=== PATIENT | female | born 1945 ===

== ENCOUNTER 2025-02-17 11:16 | Observation (INO) ==
--- NOTE | 2025-02-17 11:25 | ED Physician Documentation ---
PD HPI ALTERED MENTAL STATUS Stated complaint Stated Complaint: ALOC Chief complaint Chief Complaint: Neuro History obtained from History obtained from: Patient and EMS (Medics report pt apartment was cluttered but neat, seems pt had been keeping care of herself. On their arrival, pt not verbal but did follow commands. ) History of Present Illness Timing - onset: Unknown Timing - details: Other (patient seen standing in her doorway, not moving or doing any purposeful activity. Landlord stopped to check on her and she was not answering questions, just staring blankly. No noted focal weakness. EMS called. They say pt walked down outdoor stairway. But did not answer any questions. ) Contributing factors: Other (unknown circumstances prior to pt having these symptoms. Medic states pt was alone in apartment. ); No Diabetic or Known psych illness Basline status: Ambulatory, Independent (lives alone apparently, so presume is usually functional. ) and Home Treatment DIRECTOR GEOTHERMAL OPERATIONS: Accucheck Similar symptoms before: Has not had sx before Meds/Allgy Allergies Allergies Allergy/AdvReac Type Severity Reaction Status Date / Time Unable to Assess Allergy Verified 02/17/25 11:50 PFSH Active Problems All Active Problems (Updated 02/17/25 @ 16:24 by HARPREET Flores) Lactic acidosis (Acute) Self-care deficit (Acute) Dehydration (Acute) Altered mental status (Acute) Social History Social History Smoking Status: Unknown if ever smoked Exam Exam Vital Signs: Vital Signs x48h Pulse BP Pulse Ox 02/17/25 14:00 85 181/74 H 96 02/17/25 13:19 86 181/74 H 96 02/17/25 13:03 102 H 188/101 H 96 Constitutional normal general appearance, no apparent distress and average body habitus HENMT normocephalic and head/scalp atraumatic Eyes PERRL Neck/C-Spine supple and no meningeal signs Lymph no lymphadenopathy noted Respiratory normal respiratory effort, clear to auscultation bilaterally and no use of accessory muscles Cardiovascular normal heart rate noted, regular rhythm noted and no edema Gastrointestinal abdomen soft to palpation and nontender to palpation Back/Pelvis no thoracic spine tenderness and no lumbar spine tenderness Extremities no tenderness and full ROM Neurology no focal motor deficit noted, no sensory deficits noted and speech abnormality noted (expressive aphasia) (she is just not making attempts to talk. Looking somewhat blankly when I talk to her. Slowly follows commands to squeeze my hands only after I hold them and give a little squeeze first. ) Psychiatry mental status abnormal other (just blank staring toward me when I talk to her. Flat affect. No apparent pain. Abd tender on exam. ) Skin skin color normal Results Vitals Vitals: Vital Signs - 24 hr 02/17/25 11:38 02/17/25 12:20 02/17/25 13:03 Temperature 37.4 C Temperature Source Rectal Pulse Rate 108 H 96 102 H Respiratory Rate 22 22 Blood Pressure 151/103 H 188/101 H 188/101 H O2 Saturation 98 98 96 O2 Source Room air Room air Room air Pain Intensity 0 02/17/25 13:19 02/17/25 14:00 Temperature Temperature Source Pulse Rate 86 85 Respiratory Rate Blood Pressure 181/74 H 181/74 H O2 Saturation 96 96 O2 Source Room air Room air Pain Intensity Oxygen O2 Source Room air Labs Labs: Laboratory Tests 02/17/25 11:47 WBC 8.9 RBC 5.77 H Hgb 17.0 H Hct 51.3 H MCV 88.9 MCH 29.5 MCHC 33.1 RDW 12.5 Plt Count 330 MPV 10.9 H Neut # (Auto) 7.6 H Lymph # (Auto) 1.0 L [place] # (Auto) 0.2 Eos # (Auto) 0.0 Baso # (Auto) 0.0 Absolute Nucleated RBC 0.00 Nucleated RBC % 0.0 Sodium 141 Potassium 4.2 Chloride 99 L Carbon Dioxide 21 Anion Gap 21.0 H BUN 39 H Creatinine 1.1 Estimated GFR (MDRD) 48 L Glucose 170 H Lactic Acid 3.3 H* Calcium 10.3 Magnesium 2.5 H Total Bilirubin 0.9 AST 15 ALT 12 Alkaline Phosphatase 74 Total Protein 7.6 Albumin 4.4 Globulin 3.2 Albumin/Globulin Ratio 1.4 Lipase 32 TSH 1.80 Rads (name of study) AP CT: Relevant Findings:: Final report received Interpretation: EXAM: [id number] CT/ABPEW ([id number]) PROCEDURE: CT Abdomen/Pelvis W INDICATIONS: lower abd tender CONTRAST: Omni 300 100mL TECHNIQUE: After the administration of intravenous contrast, a CT scan of the abdomen and pelvis was performed. Images were recorded and evaluated at appropriate window settings. Reformats: coronal and sagittal. For radiation dose reduction, the following was used: automated exposure control, adjustment of mA and/or kV according to patient size. COMPARISON: None. FINDINGS: Image quality: Diagnostic. Lower chest: Small hiatal hernia. Normal heart size. Extreme lung bases are clear.. Liver: No solid mass. Gallbladder: Distended gallbladder with mild wall prominence. There is no inflammatory change in the adjacent fat. Biliary tree: No intrahepatic or extrahepatic dilation, accounting for age. Spleen: No splenomegaly. Pancreas: No pancreatic ductal dilation. Adrenals: No adrenal nodule. Kidneys and ureters: No hydronephrosis. No renal cystic lesion which requires follow up. No solid mass. Stomach, bowel and peritoneum: No gastric or small bowel dilation. No abnormal wall thickening. No pathologic free fluid. Moderately large fecal load. Lymph nodes: No central or retroperitoneal adenopathy. Vessels: No infrarenal aortic aneurysm. Patent portal vein. PELVIS Reproductive organs: Uterine endometrium is thickened, measuring 9 mm. Calcified degenerated uterine fibroids. Bladder: No abnormal wall thickening. Pelvic lymph nodes: No pelvic adenopathy by size criteria. Bones: No aggressive osseous abnormality. Old L5 compression. Other: No significant ventral or inguinal hernia. IMPRESSION: 1. Distended gallbladder with mild wall prominence without subjacent inflammatory change. 2. Thickened endometrium in a postmenopausal female. 3. Moderately large fecal load. Comments: If clinically suspect acute gallbladder pathology, recommend right upper quadrant ultrasound. Additionally, recommend nonemergent pelvic ultrasound to evaluate endometrial thickening in a postmenopausal female. Findings may potentially represent early endometrial carcinoma. Reviewed by: Haile Jean-Baptiste MD on 02/17/2025 1:[address]: Relevant Findings:: Final report received Interpretation: EXAM: [id number] CT/HEADWO ([id number]) PROCEDURE: CT Head WO INDICATIONS: AMS TECHNIQUE: CT of the head was performed, without intravenous contrast. Reformats: Coronal and sagittal. For radiation dose reduction, the following was used: automated exposure control, adjustment of mA and/or kV according to patient size. COMPARISON: None. FINDINGS: Image quality: Diagnostic. CSF spaces: Basal cisterns are patent. No extra-axial fluid collections. Ventricles are normal in size and shape. Brain: No midline shift. No intracranial mass effect or hemorrhage. Wiley- white matter interface is normal. Age appropriate volume loss and periventricular white matter hypoattenuation, likely chronic ischemic change. Skull and face: Calvarium and visualized facial bones are intact, without s uspicious lesions. Sinuses: Visualized sinuses and mastoids are clear. IMPRESSION: No acute intracranial pathology. Reviewed by: Haile Jean-Baptiste MD on 02/17/2025 1:30 PM [facility] chest xray: Relevant Findings:: Final report received Interpretation: EXAM: [id number] XR/CXR1VW ([id number]) PROCEDURE: XR Chest 1V INDICATIONS: AMS TECHNIQUE: One view of the chest was acquired. COMPARISON: None. FINDINGS: Surgical changes and devices: None. Lungs and pleura: No pleural effusions or pneumothorax. No consolidation. Mediastinum: Mediastinal contours appear normal. Heart size is normal. Bones and chest wall: No suspicious bony lesions. Overlying soft tissues appear unremarkable. IMPRESSION: No acute cardiopulmonary process. Reviewed by: Haile Jean-Baptiste MD on 02/17/2025 3:07 PM [facility] PD Medical Decision Making ED course Complexity details: reviewed results, re-evaluated patient (having some simple answers to qeustions at times but still not conversant or interacting appropriately. ), considered differential (nonverbal without focal deficit. Checking basic labs, head CT, signs of infection. Has some lower abd tenderness evidenced by her wincing on palpation. CT abd/pelvis done. ), d/w patient and d/w sap business objects consultant (talked with Dr. Pabon, hospitalist, as I do not have clear cause of her altered mmental status, I asked for placing in hospital for further testing. ) Reviewed Lab Results: CT abd with some GB distension, but not clear cholecystitis. She is not tender in upper abd. Moderately large fecal load. WBC normal. Sodium and lytes normal range. Creatinine 1.1. Lactate is elevated at 3.3. COnsider underhydration with less perfusion vs infectious cause. CXR without infiltrates. UA ubsequently done and without infection. Lower abd tender without peritoneal findings. CT did not identify obvious process as infection. Head CT without acute findings. Consider MRI. Discharge Plan Discharge Patient Disposition: ED Place in Observation Condition: Stable Clinical Impression: Altered mental status Interventions: ED Admission Assessment Last Done: 02/17/25 15:35 Vitals documented within 30 minutes of discharge?: Yes
[2025-02-17] MEDS: SODIUM CHLORIDE 0.9% 1,000 ML IV STA ×2 (11:51→12:55)
[2025-02-17 11:55] LABS: HCT - HEMATOCRIT 51.3 % (37.0-47.0); HGB - HEMOGLOBIN 17.0 g/dL (12.0-16.0); MEAN PLATELET VOLUME 10.9 fL (7.9-10.8); NRBC ABSOLUTE COUNT (AUTO) 0.00 x10^3/uL; NUCLEATED RED BLOOD CELLS AUTO 0.0 /100WBC; PLT - PLATELET COUNT 330 10^3/uL (130-450); RED CELL DISTRIBUTION WIDTH 12.5 % (12.0-15.0)
[2025-02-17 12:17] LABS: ALT ALANINE AMINOTRANSFERASE 12.0 IU/L (10-60); AST ASPARTATE AMINOTRANSFERASE 15.0 IU/L (10-42); BUN - BLOOD UREA NITROGEN 39.0 mg/dL (6-20); CARBON DIOXIDE - CO2 21.0 mmol/L (21-32); CREATININE 1.1 mg/dL (0.6-1.3); GFR - MDRD 48.0 (>89)
--- NOTE | 2025-02-17 13:33 | CT Report ---
PROCEDURE: CT Head WO INDICATIONS: AMS TECHNIQUE: CT of the head was performed, without intravenous contrast. Reformats: Coronal and sagittal. For radiation dose reduction, the following was used: automated exposure control, adjustment of mA and/or kV according to patient size. COMPARISON: None. FINDINGS: Image quality: Diagnostic. CSF spaces: Basal cisterns are patent. No extra-axial fluid collections. Ventricles are normal in size and shape. Brain: No midline shift. No intracranial mass effect or hemorrhage. Wiley- white matter interface is normal. Age appropriate volume loss and periventricular white matter hypoattenuation, likely chronic ischemic change. Skull and face: Calvarium and visualized facial bones are intact, without suspicious lesions. Sinuses: Visualized sinuses and mastoids are clear. IMPRESSION: No acute intracranial pathology. Reviewed by: Haile Jean-Baptiste MD on 02/17/2025 1:[address] [facility] Approved by: Haile Jean-Baptiste MD on 02/17/2025 1:[address] [facility] Station ID: [id number]
--- NOTE | 2025-02-17 13:45 | CT Report ---
PROCEDURE: CT Abdomen/Pelvis W INDICATIONS: lower abd tender CONTRAST: Omni 300 100mL TECHNIQUE: After the administration of intravenous contrast, a CT scan of the abdomen and pelvis was performed. Images were recorded and evaluated at appropriate window settings. Reformats: coronal and sagittal. For radiation dose reduction, the following was used: automated exposure control, adjustment of mA and/or kV according to patient size. COMPARISON: None. FINDINGS: Image quality: Diagnostic. Lower chest: Small hiatal hernia. Normal heart size. Extreme lung bases are clear.. Liver: No solid mass. Gallbladder: Distended gallbladder with mild wall prominence. There is no inflammatory change in the adjacent fat. Biliary tree: No intrahepatic or extrahepatic dilation, accounting for age. Spleen: No splenomegaly. Pancreas: No pancreatic ductal dilation. Adrenals: No adrenal nodule. Kidneys and ureters: No hydronephrosis. No renal cystic lesion which requires follow up. No solid mass. Stomach, bowel and peritoneum: No gastric or small bowel dilation. No abnormal wall thickening. No pathologic free fluid. Moderately large fecal load. Lymph nodes: No central or retroperitoneal adenopathy. Vessels: No infrarenal aortic aneurysm. Patent portal vein. PELVIS Reproductive organs: Uterine endometrium is thickened, measuring 9 mm. Calcified degenerated uterine fibroids. Bladder: No abnormal wall thickening. Pelvic lymph nodes: No pelvic adenopathy by size criteria. Bones: No aggressive osseous abnormality. Old L5 compression. Other: No significant ventral or inguinal hernia. IMPRESSION: 1. Distended gallbladder with mild wall prominence without subjacent inflammatory change. 2. Thickened endometrium in a postmenopausal female. 3. Moderately large fecal load. Comments: If clinically suspect acute gallbladder pathology, recommend right upper quadrant ultrasound. Additionally, recommend nonemergent pelvic ultrasound to evaluate endometrial thickening in a postmenopausal female. Findings may potentially represent early endometrial carcinoma. Reviewed by: Haile Jean-Baptiste MD on 02/17/2025 1:42 PM PST Approved by: Haile Jean-Baptiste MD on 02/17/2025 1:42 PM PST Station ID: [id number]
--- NOTE | 2025-02-17 14:55 | HISTORY & PHYSICAL EXAMINATION ---
Chief Complaint Chief Complaint Chief Complaint: AMS History of Present Illness Admitted From Admitted From:: home History Obtained From Records Reviewed: none available History obtained from: Patient History of Present Illness HPI Comment/Other: 79-year-old female with unknown past medical history who presents to the emergency department with altered level of consciousness. According to EMS she was found sitting by her front door. She had not been seen for about 2 days. Initial report say that she is nonverbal but follows commands. When I came in to her room in the emergency department I asked her her name. She did eye me suspiciously and was quiet for a few moments and then told me that her name was Cecelia Camejo. She then starts to speak to me about being thirsty. And then launches into confused speech where she describes that she has water in her toilet. I asked her if she was drinking the water in the toilet and she said no. And then tells me about washing her hair with warm water and cold water. She also tells me that someone was knocking on her door but she did not know if they were knocking on the front door or the back door. And then they brought her here. She is oriented to month and year but not day. She knows that we are in the hospital. When I ask her who her primary care doctor is she looks at me as if pondering my question but then never answers. When I ask her who she calls if she has a problem she says that she figures it out herself. When I ask her who I should call if she is sick in the hospital and unable to tell me anything she simply does not answer my question. Otherwise I cannot elicit any complaints from her. Aside from admitting that she is thirsty.She is unable to tell me anything about her day-to-day life, or how she manages to meet her own needs. CODE STATUS unknown, full code by default. is listed in chart. Per brief Internet search he has been for almost 20 years. Patient possibly has a son also per 's obituary. His name is Omer. Meds/Allgy Allergies Allergies Allergy/AdvReac Type Severity Reaction Status Date / Time Unable to Assess Allergy Verified 02/17/25 11:50 PFSH Active Problems All Active Problems (Updated 02/17/25 @ 16:24 by HARPREET Flores) Lactic acidosis (Acute) Self-care deficit (Acute) Dehydration (Acute) Altered mental status (Acute) POLST Patient has POLST: No POLST on file?: No Review of Systems Status of ROS: unobtainable due to mental status Prior Level of Functionality: Unknown Exam Exam Vital Signs: Vital Signs x48h Temp Pulse Pulse Resp BP BP Pulse Ox 02/17/25 15:39 37.0 C 102 H 18 169/86 H 98 02/17/25 15:35 88 173/86 H 95 02/17/25 14:00 85 181/74 H 96 02/17/25 13:19 86 181/74 H 96 02/17/25 13:03 102 H 188/101 H 96 02/17/25 12:20 96 22 188/101 H 98 02/17/25 11:38 37.4 C 108 H 22 151/103 H 98 Constitutional Disheveled and poorly groomed HENMT normocephalic, head/scalp atraumatic and external ears normal For dental hygiene with poor dentition Eyes PERRL, EOMs intact bilaterally, conjunctivae normal, alignment normal and visual acuity normal Neck/C-Spine visual inspection normal, trachea midline and cervical spine nontender Lymph no lymphadenopathy noted and no lymphedema noted Chest inspection of chest normal Respiratory breath sounds equal bilaterally, normal respiratory effort, clear to auscultation bilaterally and no use of accessory muscles Cardiovascular no murmur, no additional abnormal heart sounds and no edema Tachycardic to the low 100s. Gastrointestinal abdomen normal to inspection and abdomen soft to palpation Mild suprapubic tenderness consistent with full bladder that I can see on the CT Genitourinary bladder abnormal to palpation Extremities normal to inspection, normal to palpation, no tenderness and no deformity Neurology no movement abnormality noted, no focal motor deficit noted, no sensory deficits noted and GCS 15 (Confused eyes open spontaneously, confused speech, follows commands equals ) Psychiatry cooperative disoriented, no insight, oriented to person, place and time, but not situation. Skin skin color normal, no rash and no lesions hair slightly matted, has not been washed in some time. Conclusion/Plan Problem List (1) Altered mental status: Plan: presents to the emergency department with altered mental status after welfare check. She is intermittently verbal. Seems very suspicious of her caregivers. We have asked her multiple questions and then after an interval of time she answers some of them. She expresses some dismay that I asked about her son Omer. But she does not tell me why she is displeased with this question. She then says you asked me if I feel safe at home, of course I feel safe at home. I have a jones to the door. And then she tells us that the card are changing. When I ask her how the card are changing she says they are green now. She does not tell me who her primary care doctor is or if she takes any medications. She also will not answer my question when I ask her if she has ever had any surgery. This patient clearly has altered mental status. Is unclear if this is acute or chronic. I will place this patient on telemetry overnight to assess for any cardiac arrhythmias. I will attempt to get an MRI of her brain although I do not know how we will do the screening form (we did find her son to complete). Her laboratory findings look as if she is dehydrated. This is also consistent with findings on her physical exam. I will recheck a CBC and a BMP in the morning. UA and urine drug screen is pending. EKG shows sinus rhythm. she has some mild intermittent tachycardia. Discussed with Dr. Palomino in the ED and decision was made to admit this patient to the hospital overnight for workup of her altered mental status. (2) Dehydration: Plan: Patient got 2 L of IV fluids in the emergency department. I am allowing her to eat and drink at will. I will give her an additional liter at 100 cc an hour over the next 10 hours. I think this is related to her self care deficit. her son does relate some problems with the safety of the water at her mobile home park, and I wonder if she is not drinking at home. She does not appear to have the stamina to bring in her own bottled water for drinking. (3) Self-care deficit: Plan: She has dry mucous membranes. It looks like it has been quite sometime since she has brushed her teeth. Her hemoglobin is 17.0. She has an elevated lactate and a slightly high magnesium. She appears poorly groomed. Baseline status is independent. Does not drive. I was able to identify an obituary for her . On this it lists his son by the name of Omer, same last name. I have requested social work consult to further investigate. Dr Pabon was able to find her son and speak with him. ([phone]) It seems that she is having some progressive decline. She has been rather odd for years, confabulates. But, she is able to handle her own finances, meets her own care needs. Uses public transport to get groceries. Does have limited contact with others. does not have good friends or regular social interactions. She does not have a phone. Her DIL works in [place] and the patient will occasionally drop by [employer]'s place of business with gifts, etc. Son only speaks to her or sees her every few weeks, and she tends to get annoyed with too much human contact. Son Omer is her NOK. She believed that her was alive for years after he was , and to this day, will occasionally think this. May have some underlying undiagnosed mental illness and may also be suffering from dementia. Does not have a PCP or seek medical care. Spoke with manufacturing operations manager at [employer]. This person noted that Cecelia Bustos was very different than normal today. normally she is grouchy, accusatory and paranoid. Today, she was almost catatonic. As she intermittently improves here, I am seeing that she is starting to become paranoid and suspicious of her care team. (4) Lactic acidosis: Plan: Likely related to dehydration. I do not have a urinalysis. She does not have a leukocytosis. Resolved with hydration, i will be following up on UA. Plan I have spent 85 minutes in the care of this patient today. This includes time [id number], review and ordering of diagnostic imaging and laboratory studies and consultation with other providers, as well as gathering history from independent historians. Monitoring the patient's signs symptoms, evaluation of medication effectiveness and patient's response to treatment. Lab Results Lab results reviewed: Yes 02/17/25 11:47 02/17/25 11:47 Diagnostic Imaging Results Diagnostic Imaging Results: positive Final report reviewed and Read independently EKG Results EKG Interpreted Independently: Yes EKG Comparison: No prior EKG EKG Findings: Sinus rhythm with some artifact. Core Measures Anticipated LOS I expect patient to be DC'd or transferred within 96 hours.: Yes DVT/VTE - Prophylaxis VTE/DVT Device ordered at admit?: Yes VTE/DVT Prophylaxis med ordered at admit?: Yes
--- NOTE | 2025-02-17 15:10 | XRAY Report ---
PROCEDURE: XR Chest 1V INDICATIONS: AMS TECHNIQUE: One view of the chest was acquired. COMPARISON: None. FINDINGS: Surgical changes and devices: None. Lungs and pleura: No pleural effusions or pneumothorax. No consolidation. Mediastinum: Mediastinal contours appear normal. Heart size is normal. Bones and chest wall: No suspicious bony lesions. Overlying soft tissues appear unremarkable. IMPRESSION: No acute cardiopulmonary process. Reviewed by: Haile Jean-Baptiste MD on 02/17/2025 3:07 PM [facility] Approved by: Haile Jean-Baptiste MD on 02/17/2025 3:07 PM PST Station ID: [id number]
[2025-02-17] MEDS ORDERED: ACETAMINOPHEN 325 MG TABLET PO PRN (15:39)
[2025-02-17] MEDS ORDERED: SODIUM CHLORIDE FLUSH 0.9% 10 ML SYRINGE IVP PRN (15:39)
[2025-02-17] MEDS ORDERED: ONDANSETRON ODT 4 MG TABLET TL PRN (15:39)
[2025-02-17] MEDS: DEXTROSE 5%-0.9% NACL 1,000 ML IV SCH (16:45)
[2025-02-17 18:24] LABS: GLUCOSE, URINE (UA) Negative (NEGATIVE); KETONES,URINE (UA) 40 mg/dL (NEGATIVE); OCCULT BLOOD,URINE Trace-intact (NEGATIVE)
[2025-02-17] MEDS: SODIUM CHLORIDE FLUSH 0.9% 10 ML SYRINGE IVP SCH (18:41)
[2025-02-17 18:45] LABS: SQUAMOUS EPITHELIAL CELL,UR FEW Squamous (<= Few)
[2025-02-17 18:46] LABS: AMPHETAMINE SCREEN,URINE NEGATIVE (NEGATIVE); BARBITURATE SCREEN,UR NEGATIVE (NEGATIVE); BENZODIAZEPINES SCREEN, URINE NEGATIVE (NEGATIVE); BUPRENORPHINE SCREEN, URINE NEGATIVE (NEGATIVE); COCAINE SCREEN URINE NEGATIVE (NEGATIVE); METHADONE SCREEN, URINE NEGATIVE (NEGATIVE); METHAMPHETAMINES SCREEN, URINE NEGATIVE (NEGATIVE); OPIATE SCREEN, URINE NEGATIVE (NEGATIVE); THC CANNABINOID SCREEN, URINE NEGATIVE (NEGATIVE)
--- NOTE | 2025-02-17 18:46 | MRI Report ---
PROCEDURE: MRI Brain WO INDICATIONS: AMS TECHNIQUE: Multisequence MRI of the brain was performed without intravenous contrast. COMPARISON: Same day CT head FINDINGS: Image quality: Diagnostic. CSF Spaces: Basal cisterns are patent. No extra-axial fluid collections. Ventricles are normal in size and shape. Brain: No intracranial mass effect or hemorrhage. Wiley/white matter interface is normal. Minimal chronic microvascular ischemic change. Brainstem appears normal. Diffusion-weighted images demonstrate no acute ischemic insult. No chronic ischemic insults. Normal intravascular flow voids are present. Skull and face: Calvarium has normal marrow signal. Orbits appear normal. Sinuses: Sinuses and mastoids are clear. IMPRESSION: No acute or subacute infarct. No acute intracranial abnormalities. Reviewed by: Jose Jaquez MD on 02/17/2025 6:43 PM PST Approved by: Jose Jaquez MD on 02/17/2025 6:43 PM [facility] Station ID: [id number]
[2025-02-18 05:23] LABS: HCT - HEMATOCRIT 36.2 % (37.0-47.0); HGB - HEMOGLOBIN 11.8 g/dL (12.0-16.0); MEAN PLATELET VOLUME 10.9 fL (7.9-10.8); NRBC ABSOLUTE COUNT (AUTO) 0.00 x10^3/uL; NUCLEATED RED BLOOD CELLS AUTO 0.0 /100WBC; PLT - PLATELET COUNT 213 10^3/uL (130-450); RED CELL DISTRIBUTION WIDTH 12.5 % (12.0-15.0)
[2025-02-18 05:41] LABS: BUN - BLOOD UREA NITROGEN 21.0 mg/dL (6-20); CARBON DIOXIDE - CO2 25.0 mmol/L (21-32); CREATININE 0.6 mg/dL (0.6-1.3); GFR - MDRD 97.0 (>89)
[2025-02-18] MEDS: DOCUSATE SODIUM 250 MG CAPSULE PO SCH (08:40)
[2025-02-18] MEDS: ENOXAPARIN 40 MG/0.4 ML SYRINGE SUBQ SCH (08:42)
--- NOTE | 2025-02-18 12:24 | PROVIDER PROGRESS NOTE ---
Subjective Prog Note Date Prog Note Date: 02/18/25 Subjective Subjective: She is awake and alert, but does not always answer my questions. She is oriented x3. Social work has been able to meet with her family. Current Medications Current Medications Current Medications: Current Medications Generic Name Dose Route Start Last Admin Trade Name Freq PRN Reason Stop Dose Admin Acetaminophen 650 mg 02/17/25 15:39 Acetaminophen 325 Mg Tablet PO Q4HR PRN Pain 1 to 4, or Fever Docusate Sodium 250 - 500 mg 02/18/25 09:00 02/18/25 10:01 Docusate Sodium 250 Mg Capsule PO Not Given DAILY [facility] Enoxaparin Sodium 40 mg 02/18/25 09:00 02/18/25 08:42 Enoxaparin 40 Mg/0.4 Ml Syringe SUBQ Not Given DAILY [facility] Ondansetron HCl 4 mg 02/17/25 15:39 Ondansetron Odt 4 Mg Tablet TL Q6HR PRN Nausea / Vomiting Polyethylene Glycol 17 gm 02/18/25 09:00 02/18/25 10:02 Polyethylene Glycol 3350 17 Gm Packet PO Not Given DAILY [facility] Sodium Chloride 10 ml 02/17/25 15:39 Sodium Chloride Flush 0.9% 10 Ml Syringe IVP PRN PRN NEEDED PER PROVIDER ORDERS Sodium Chloride 10 ml 02/17/25 17:00 02/18/25 08:40 Sodium Chloride Flush 0.9% 10 Ml Syringe IVP 10 ml 0100,0900,1700 [facility] Administration Objective Vital Signs/Intake & Output Reviewed Vital Signs: Yes Vital Signs: Vital Signs x48h Temp Pulse Resp BP Pulse Ox 02/18/25 11:50 36.4 C L 85 16 146/73 H 95 02/18/25 07:58 36.7 C 86 16 130/72 96 02/18/25 05:00 37.1 C 80 16 144/68 H 95 Intake & Output: Intake & Output 02/15/25 02/16/25 02/17/25 02/18/25 23:59 23:59 23:59 23:59 Intake Total 3200 / 3200 1150 / 1150 Output Total 1200 / 1200 300 / 300 Balance 1999 / 1999 850 / 850 Weight (kg) 57 kg Objective General Appearance: positive No acute distress and Alert Eyes Bilateral: positive PERRL and Conjunctivae nml ENT: positive ENT inspection nml Neck: positive Nml inspection Respiratory: positive No respiratory distress and Breath sounds nml Cardiovascular: positive Regular rate & rhythm Abdomen: positive No distention Skin: positive Color nml Extremities: positive Non-tender and No pedal edema Lab Results 02/18/25 04:47 02/18/25 04:47 Other Labs: Lab Results x24hrs 02/18/25 02/17/25 02/17/25 Range/Units 04:47 18:15 15:52 WBC 7.7 (4.8-10.8) x10^3/uL RBC 4.03 L (4.20-5.40) 10^6/uL Hgb 11.8 L (12.0-16.0) g/dL Hct 36.2 L (37.0-47.0) % MCV 89.8 (81.0-99.0) fL MCH 29.3 (27.0-31.0) pg MCHC 32.6 (32.0-36.0) g/dL RDW 12.5 (12.0-15.0) % Plt Count 213 (130-450) 10^3/uL MPV 10.9 H (7.9-10.8) fL Neut # (Auto) 5.7 (1.5-6.6) 10^3/uL Lymph # (Auto) 1.4 L (1.5-3.5) 10^3/uL Clay # (Auto) 0.6 (0.0-1.0) 10^3/uL Eos # (Auto) 0.0 (0.0-0.7) 10^3/uL Baso # (Auto) 0.0 (0.0-0.1) 10^3/uL Absolute Nucleated RBC 0.00 x10^3/uL Nucleated RBC % 0.0 /100WBC Sodium 138 (135-145) mmol/L Potassium 3.1 L (3.5-4.5) mmol/L Chloride 109 (101-111) mmol/L Carbon Dioxide 25 (21-32) mmol/L Anion Gap 4.0 L (6-13) BUN 21 H (6-20) mg/dL Creatinine 0.6 (0.6-1.3) mg/dL Estimated GFR (MDRD) 97 (>89) Glucose 127 H (74-104) mg/dL Lactic Acid 1.2 (0.5-2.2) mmol/L Calcium 8.6 (8.5-10.3) mg/dL TSH (0.34-5.60) uIU/mL Urine Color Dark yellow Urine Clarity Clear (CLEAR) Urine pH 5.5 (5.0-7.5) PH Ur Specific [place] 1.015 (1.002-1.030) Urine Protein 30 H (NEGATIVE) mg/dL Urine Glucose (UA) Negative (NEGATIVE) mg/dL Urine Ketones 40 H (NEGATIVE) mg/dL Urine Occult Blood Trace-intact (NEGATIVE) Urine Nitrite Negative (NEGATIVE) Urine Bilirubin Moderate (NEGATIVE) Urine Urobilinogen 1 (NORMAL) (NORMAL) E.U./dL Ur Leukocyte Esterase Negative (NEGATIVE) Urine RBC 0-5 (0-5) /HPF Urine WBC 0-3 (0-5) /HPF Ur Squamous Epith Cells FEW Squamous (<= Few) Urine Bacteria Rare (None Seen) /HPF Urine Mucus Moderate Strands Urine Culture Comments NOT INDICATED Urine Opiates Screen NEGATIVE (NEGATIVE) Ur Buprenorphine Scrn NEGATIVE (NEGATIVE) Ur Oxycodone Screen NEGATIVE (NEGATIVE) Urine Methadone Screen NEGATIVE (NEGATIVE) Urine Fentanyl Screen Negative (NEGATIVE) Ur Barbiturates Screen NEGATIVE (NEGATIVE) Ur Tricyclics Screen NEGATIVE (NEGATIVE) Ur Phencyclidine Scrn NEGATIVE (NEGATIVE) Ur Amphetamine Screen NEGATIVE (NEGATIVE) U Methamphetamines Scrn NEGATIVE (NEGATIVE) U Benzodiazepines Scrn NEGATIVE (NEGATIVE) Urine Cocaine Screen NEGATIVE (NEGATIVE) U Cannabinoids Screen NEGATIVE (NEGATIVE) Ur Drug Screen Comment CUTOFF CONC BELOW: 02/17/25 Range/Units 11:47 WBC (4.8-10.8) x10^3/uL RBC (4.20-5.40) 10^6/uL Hgb (12.0-16.0) g/dL Hct (37.0-47.0) % MCV (81.0-99.0) fL MCH (27.0-31.0) pg MCHC (32.0-36.0) g/dL RDW (12.0-15.0) % Plt Count (130-450) 10^3/uL MPV (7.9-10.8) fL Neut # (Auto) (1.5-6.6) 10^3/uL Lymph # (Auto) (1.5-3.5) 10^3/uL Clay # (Auto) (0.0-1.0) 10^3/uL Eos # (Auto) (0.0-0.7) 10^3/uL Baso # (Auto) (0.0-0.1) 10^3/uL Absolute Nucleated RBC x10^3/uL Nucleated RBC % /100WBC Sodium (135-145) mmol/L Potassium (3.5-4.5) mmol/L Chloride (101-111) mmol/L Carbon Dioxide (21-32) mmol/L Anion Gap (6-13) BUN (6-20) mg/dL Creatinine (0.6-1.3) mg/dL Estimated GFR (MDRD) (>89) Glucose (74-104) mg/dL Lactic Acid (0.5-2.2) mmol/L Calcium (8.5-10.3) mg/dL TSH 1.80 (0.34-5.60) uIU/mL Urine Color Urine Clarity (CLEAR) Urine pH (5.0-7.5) PH Ur Specific [place] (1.002-1.030) Urine Protein (NEGATIVE) mg/dL Urine Glucose (UA) (NEGATIVE) mg/dL Urine Ketones (NEGATIVE) mg/dL Urine Occult Blood (NEGATIVE) Urine Nitrite (NEGATIVE) Urine Bilirubin (NEGATIVE) Urine Urobilinogen (NORMAL) E.U./dL Ur Leukocyte Esterase (NEGATIVE) Urine RBC (0-5) /HPF Urine WBC (0-5) /HPF Ur Squamous Epith Cells (<= Few) Urine Bacteria (None Seen) /HPF Urine Mucus Urine Culture Comments Urine Opiates Screen (NEGATIVE) Ur Buprenorphine Scrn (NEGATIVE) Ur Oxycodone Screen (NEGATIVE) Urine Methadone Screen (NEGATIVE) Urine Fentanyl Screen (NEGATIVE) Ur Barbiturates Screen (NEGATIVE) Ur Tricyclics Screen (NEGATIVE) Ur Phencyclidine Scrn (NEGATIVE) Ur Amphetamine Screen (NEGATIVE) U Methamphetamines Scrn (NEGATIVE) U Benzodiazepines Scrn (NEGATIVE) Urine Cocaine Screen (NEGATIVE) U Cannabinoids Screen (NEGATIVE) Ur Drug Screen Comment Assessment/Plan Problem List (1) Altered mental status: Impression: presents to the emergency department with altered mental status after welfare check. Her MRI is negative. Her labs have normalized as I would expect in a person that did not eat and drink and then was given water and nutrition. I met with family last evening, and briefly greeted them at the bedside today. Family had a long meeting with social work today. What I am understanding about Jackie is that she has had mental health issues, that have gone untreated for most of her life. There are things about her past that her son has some minor clues about but that he really does not have the full story. She probably had significant traumatic events early in her life but no one seems to know more than that. She has always been rather odd and her son relates to social work what sounds like episodes of psychosis intermittently throughout her adult life. She has never been trustful of services that might help her. Her son is unaware of where her income comes from. She has never applied for health insurance. It is quite possible that she does not have Medicare. After getting out of the [employer] she never worked, but her did have a full [employer] career which hopefully will entitle her to some benefits. Her daily life recently consists of riding the bus into [place]. She likes to go into the coffee shops and get coffee although she has been told that she may not return to several of them due to behavioral outbursts and disturbances. She also periodically stops into her daughter in law's workplace at [employer]. As far as her son and [id number] knows she pays all of her bills. She does not have a refrigerator in her home and she has not allowed them to remove the nonworking refrigerator for years. The only food item that they found in her home was a box of Cheerios. Her home reportedly is very cluttered. her DIL and son report that the toilet had not been flushed in quite some time. There were buckets of water scattered about. There were rodent feces seen. It is clear that this patient has a self-care deficit that is acute in nature but probably smoldering for quite some time. She shows clear evidence that she is not able to care for herself. Will request PT evaluation in the a.m. to make sure she is able to ambulate household distances. (2) Dehydration: Impression: Resolved. Mild hypokalemia on labs this morning. Will replete. I will also check mag and Phos in the morning for refeeding syndrome. Her hemoglobin dropped from 17.0-11.8. I believe that this is a function of fluid status. (3) Self-care deficit: Impression: I believe this is an acute on chronic self-care deficit. This patient appears unwashed. She came in dehydrated and appears to have some mild degree of malnourishment. Descriptions of her home involve rodent feces and states of severe uncleanliness. The toilet has not been flushed in some time. I am asking for telepsych evaluation this afternoon. 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 She has no mental health diagnosis, because she has gone undoctored. she is very suspicious of others. Those that know her in the community describe her as grouchy, accusatory and paranoid. I would like a psychiatric opinion. (4) Lactic acidosis: Impression: Resolved. Likely due to dehydration. This patient's diagnosis and treatment plan was discussed this AM with attending physician as a part of multi disciplinary rounding meeting. I have spent 53 minutes in the care of this patient today. This includes time [id number], review and ordering of diagnostic imaging and laboratory studies and consultation with other providers. Monitoring the patient's signs symptoms, evaluation of medication effectiveness and patient's response to treatment.
[2025-02-18] MEDS: POTASSIUM CHLORIDE 20 MEQ TABLET PO ONE (16:48)
--- NOTE | 2025-02-18 19:42 | TELEPSYCH PHYS NOTE ---
[facility] Telepsych Consult Consult Date: 02/18/25 Name of Referring Provider:: inpatient medical provider Reason for Consult: psychiatric consultation Suicide Risk Sreening (ASQ Tool) In the past few weeks, have you wished you were ?: No In the past few weeks, have you felt that you or your family would be better off if you were ?: No In the past week, have you been having thoughts about killing yourself?: No Have you ever tried to kill yourself?: No Assessment Language: Maori Instrument Operator Required: No Cultural, Anabaptist or Spiritual Preferences: none known Notes: Per record, patient presented to ED on 02/17/2025 per EMS with confusion, paranoia, and dehydration. Patient was admitted to medical unit for further evaluation. Chief Complaint: "I think they said something about a flu shot" History of Present Illness: 79 yr old female is seen on the medical inpatient unit tonight per request of inpatient medical provider due to concerns related to patient's mental health. Per the record, patient had presented to ED on 02/17/2025 per EMS with confusion, paranoia, and dehydration. Patient was admitted to medical unit for further evaluation. Record indicates that psychotherapist social worker had met with patient's son and [id number] earlier today and that they reported that patient has demonstrated what appear to be paranoid delusional thoughts and behaviors for several years but that they have noticed worsening in her condition recently. Family had reported that patient [place]- does not have a working refrigerator, had paranoia regarding being poisoned, toxic gas, water being poisoned etc. They deny that she has any known psychiatric history, no prior inpatient psychiatric hospitalizations or mental health treatment in the past. Patient is guarded but relatively cooperative. She is alert and oriented to person, place and date (02/18/2025). She is unsure why she is in the hospital or how long she has been in the hospital- thinks she has been here since "January". Responses are slowed at times, patient appears suspicious and hesitant to answer frequently. She is vague regarding history- thought processes are disorganized and she provides irrelevant responses. "You go to school and study, then there's thesis and dissertation, I tried not to plagiarize. My skillet was replaced, so I bought a new one. And I got different can openers. Certain days I go to businesses. I tried to move the tables different, then the time changed happened and here we are". She denies feeling sad or depressed- describes her mood as "embarassed". She denies suicidal thoughts. Vague in regards to auditory hallucinations- "they have different actions going on"- unable to explain this. Suicide Ideation - Homicide Ideation - Self Harm: denies SI/HI Psychiatric History - Treatment History: no known psychiatric history per collateral information from son, per notes Community Resources Accessed: none Family Psych History/ History of suicide: none known Medication & Allergies Allergies Allergy/AdvReac Type Severity Reaction Status Date / Time Unable to Assess Allergy Verified 02/17/25 11:50 Drug & Alcohol History Does patient have Drug/ETOH history or addictive behavior?: No Trauma History of trauma, abuse, neglect, or exploitation (Notes): unknown Personal Information History or present tendencies for violence (Notes): none known 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 has one son, Omer. States "he lives whereever his job takes him" Stressors - Financial Concerns: unknown Education: patient reports she studied "psychology, sociology" Childhood History: not assessed Mental Status Exam Appearance and Attire: appropriately groomed, wearing hospital pajamas Attitude and Behavior: calm, guarded but relatively cooperative Speech: hesitant, latent responses at times Affect and Mood: describes her mood as "embarrassed". Denies feeling sad or depressed. affect constricted but congruent Association and Thought Process: disorganized, irrelevant/illogical responses at times Thought Content: paranoia evident. denies SI/HI Perception: denies AVH, however makes vague comment of "they have different actions going on" and is unable to explain this Sensorium, memory and orientation: alert, oriented to person, place, date. unable to fully assess memory due to patient's current mental status Intellectual - Cognitive functioning: average Insight and Judgement: poor Emotional and Behavioral Functioning: demonstrates ability to control emotions and behavior during assessment Ability to Self-Care: unable to assess Personal Goals Short-term Goals: does not identify Long-term Goals: does not identify Risk/Protective Factors Risk Factors: Inadequate social supports Protective Factors / Internal: N/A Protective Factors / External: N/A Plan Impression/Risk Assessment: denies SI/HI, thought processes are impaired with paranoia and disorganized thinking evident. Based on psychotherapist social worker's collateral information obtained from son, there appears to be a history of mental illness. Ability to care for self appropriately in the home is likely most concerning risk. Treatment - Therapy Recommendations: recommend continued monitoring of medical/mental status at this time. would recommend trial of risperdal 0.25mg po q hs for paranoia/thought disorder. further evaluation of neurocognitive disorder/dementia is also indicated Pharmacological Recommendations: discussed medication with patient, she currently declines taking any medication- recommend offering risperdal 0.25mg po q hs for paranoia/thought disorder Problem List (1) Altered mental status: (2) Dehydration: (3) Self-care deficit: (4) Lactic acidosis: Time Spent & Provider Location Telepsych consultation conducted via videoconferencing: Yes List names and roles of persons who participated in consult: nursing staff, patient Telepsych Provider Location: [place] Time Spent (Minutes): 75 PFSH Active Problems All Active Problems (Updated 02/17/25 @ 16:24 by HARPREET Flores) Lactic acidosis (Acute) Self-care deficit (Acute) Dehydration (Acute) Altered mental status (Acute) Social History Social History (Updated 02/17/25 @ 20:46 by Ac Palomino MD) Smoking Status: Unknown if ever smoked POLST Patient has POLST: No POLST on file?: No
[2025-02-18] MEDS: FLU VACC TS2025-26(65YR UP)/PF 180 MCG/0.5 ML SYRINGE IM ONE (21:56)
--- NOTE | 2025-02-19 05:08 | ECHO Report ---
Version: 1 Study ID: [id number] [id number] Adult Echocardiogram Report Name: SHIRLEY MONROE Study Date: 02/18/2025, 7: 27 AM BP: 144 / 68 mmHg Patient Location: [facility]^2203^01 HR: 91 bpm : 1945 (MM/DD/YYYY) Gender: Female Height: 66 in Age: 79 Years Weight: 125 lb BSA: 1.64 m² Reason For Study: AMS History: Supine for test. No previous study. Interpretation Summary Hyperdynamic left ventricular systolic function is present. The visual left ventricular ejection fraction is estimated at 70 to 75%. The right ventricle is normal in size and function. The aortic valve is not well visualized. Aortic valve sclerosis is present without stenosis. Left Ventricle: The left ventricle is normal in size. There is normal left ventricular wall thickness. No thrombus seen in the left ventricle. Hyperdynamic left ventricular systolic function is present. The visual left ventricular ejection fraction is estimated at 70 to 75%. The left ventricular diastolic pattern is indeterminate. Right Ventricle: The right ventricle is normal in size and function. TAPSE is consistent with normal right ventricular function. The tricuspid annular plane systolic excursion (TAPSE) measurement is 2.6 cm. Aortic Valve: The aortic valve is not well visualized. Aortic valve sclerosis is present without stenosis. No hemodynamically significant valvular aortic stenosis. The aortic valve peak velocity is 220 cm/sec. The aortic valve maximum pressure gradient is 20 mmHg. The aortic valve mean pressure gradient is 11 mmHg. No aortic regurgitation is present. Mitral Valve: The mitral valve is visually normal in structure and function. No evidence of mitral stenosis is seen. There is trace mitral regurgitation. Tricuspid Valve: The tricuspid valve is normal in structure and function. There is no tricuspid stenosis. Mild tricuspid regurgitation present. Pulmonic Valve: The pulmonic valve is not well seen. There is no pulmonic valvular stenosis. Trace pulmonic valvular regurgitation is present. Left Atrium: The left atrial size is normal. Right Atrium: Right atrial size is normal. The inferior vena cava appears normal. Atrial Septum: The interatrial septum appears normal, without evidence of shunt by 2D imaging and color Doppler. Aorta: The ascending aorta is not well seen. Aortic arch not imaged. The sinuses of Valsalva are normal in size. Pulmonary Artery: The pulmonary artery is not well visualized, but is probably normal size. The pulmonary artery systolic pressure is moderately increased. Inferior vena cava dynamics indicate normal right atrial pressures. The right ventricular systolic pressure is 47mmHg. Pericardium/Pleural Space: There is no pericardial effusion. Left Ventricle IVSd: 0.83 cm LVIDd: 4.4 cm LVPWd: 0.76 cm LVIDs: 3.1 cm EDV(MOD-sp4): 66.8 ml LVLd ap4: 7.1 cm ESV(MOD-sp4): 33.4 ml ESV(sp4-el): 35.1 ml LVLs ap4: 5.7 cm EDV(MOD-sp2): 48.0 ml ESV(MOD-sp2): 20.9 ml Right Ventricle TAPSE: 2.6 cm RV S Gerson: 13.1 cm/sec Atria LA dimension: 3.7 cm LAV(MOD-sp4): 37.8 ml LAV(MOD-sp2): 35.0 ml Diastolic Function MV dec time: 0.19 sec MV E max gerson: 106.4 cm/sec MV A max gerson: 107.3 cm/sec Aortic Valve LVOT diam: 1.71 cm LV V1 mean P.1 mmHg LV V1 mean: 81.4 cm/sec LV V1 VTI: 22.8 cm Ao V2 VTI: 40.6 cm Ao mean P.6 mmHg Ao V2 mean: 150.4 cm/sec LV V1 max: 118.2 cm/sec LV V1 max P.6 mmHg Ao max P.1 mmHg Ao V2 max: 224.2 cm/sec Mitral Valve MV max P.4 mmHg MV V2 max: 126.9 cm/sec MV mean P.3 mmHg MV V2 mean: 99.8 cm/sec MV V2 VTI: 28.5 cm Tricuspid Valve TR max P.1 mmHg TR max gerson: 332.2 cm/sec TV max P.1 mmHg Aorta Ao root diam: 2.8 cm MMode/2D Measurements & Calculations Ao root diam: 2.8 cm BMI: 20.2 kilograms/m² BSA(Haycock): 1.62 m² EDV(MOD-sp2): 48.0 ml EDV(MOD-sp4): 66.8 ml ESV(MOD-sp2): 20.9 ml ESV(MOD-sp4): 33.4 ml ESV(sp4-el): 35.1 ml IVSd: 0.83 cm LA A4C-A/L: 12.0 cm² LA dimension: 3.7 cm LA ESV-A/L: 29.2 ml LA Vol Index: 31.9 ml/m² LAV(MOD-sp2): 35.0 ml LAV(MOD-sp4): 37.8 ml LVIDd: 4.4 cm LVIDs: 3.1 cm LVLd ap4: 7.1 cm LVLs ap4: 5.7 cm LVOT diam: 1.71 cm LVPWd: 0.76 cm RA A4Cs: 8.9 cm² TAPSE: 2.6 cm Doppler Measurements & Calculations Ao max P.1 mmHg Ao mean P.6 mmHg Ao V2 max: 224.2 cm/sec Ao V2 mean: 150.4 cm/sec Ao V2 VTI: 40.6 cm Lat E/e': 10.9 LV V1 max: 118.2 cm/sec LV V1 max P.6 mmHg LV V1 mean: 81.4 cm/sec LV V1 mean P.1 mmHg LV V1 VTI: 22.8 cm Med E/e': 12.8 MV A max gerson: 107.3 cm/sec MV dec time: 0.19 sec MV DVI-pr: 0.99 MV E max gerson: 106.4 cm/sec MV max P.4 mmHg MV mean P.3 mmHg MV V2 max: 126.9 cm/sec MV V2 mean: 99.8 cm/sec MV V2 VTI: 28.5 cm PA max P.3 mmHg PA V2 max: 152.8 cm/sec RV S Gerson: 13.1 cm/sec TR max P.1 mmHg TR max gerson: 332.2 cm/sec TV max P.1 mmHg Other Measurements & Calculations Ao root area: 6.2 cm² LINO(I,D): 1.29 cm² LION(V,D): 1.21 cm² EDV(Teich): 86.5 ml EF(MOD-sp2): 56.4 % EF(MOD-sp4): 50.0 % EF(sp-el): 60.8 % EF(Teich): 56.9 % ESV(Teich): 37.3 ml FS: 29.7 % LVOT area: 2.30 cm² MV E/A: 0.99 MVA(VTI): 1.84 cm² SV(LVOT): 52.3 ml SV(MOD-sp4): 33.4 ml MD Barbara Mittal 02/19/2025, 5: 07 AM Ordering Physician: Milagros Thibodeaux Referring Physician: Ac Palomino Performed By: CHITO
[2025-02-19 10:14] LABS: HCT - HEMATOCRIT 41.2 % (37.0-47.0); HGB - HEMOGLOBIN 13.4 g/dL (12.0-16.0); MEAN PLATELET VOLUME 11.0 fL (7.9-10.8); NRBC ABSOLUTE COUNT (AUTO) 0.00 x10^3/uL; NUCLEATED RED BLOOD CELLS AUTO 0.0 /100WBC; PLT - PLATELET COUNT 208 10^3/uL (130-450); RED CELL DISTRIBUTION WIDTH 12.6 % (12.0-15.0)
[2025-02-19 10:26] LABS: BUN - BLOOD UREA NITROGEN 14.0 mg/dL (6-20); CARBON DIOXIDE - CO2 29.0 mmol/L (21-32); CREATININE 0.7 mg/dL (0.6-1.3); GFR - MDRD 81.0 (>89); PHOSPHORUS 2.2 mg/dL (2.5-5.0)
--- NOTE | 2025-02-19 13:15 | PT Plan of Care ---
PT Inpatient Plan of Care DIAGNOSIS Diagnosis: AMS, dehydration Referring Provider: Milagros Thibodeaux Patient Status: Observation CHIEF COMPLAINT Chief Complaint: confusion Onset of Chief Complaint: CHEMICAL ETCHING PROCESSOR on 02/17/25 BALANCE/FUNCTIONAL RESULTS Sitting Balance: Good Standing Balance: Good Tinetti Composite Score (Balance + Gait): 28 Tinetti Assessment Interpretation: Low Fall Risk ASSESSMENT Assessment: The pt is a 79 y/o F who arrived to the ED on 02/17/25 after neighbors observed AMS, she was hospitalized with AMS and dehydration. She is being assessed to determine if there is a psychiatric component to her current mental status. Please see chart for complete medical hx. The pt was received resting comfortably supine in bed and presented today with significant confusion about her current situation with limited orientation. She demo'd good B UE and LE strength, good activity tolerance, and good balance (sitting and standing) which allowed for safe functional mobility without an AD. At this time the pt does not appear to require continued skilled PT intervention while in the acute setting as she is strong and mobile without a significant fall risk. She does not require further rehab as there are no mobility deficits. At this time the pt will be DC from PT caseload while the medical team determines safe DC disposition due to cognitive deficits. At the end of the session the pt was supine in bed with call light in reach, bed alarm on, and all needs met. RN, WILDLIFE CONSERVATION PROFESSOR, and PA all updated on pt's status and DC rec, no goals will be set as this is an eval only. PLAN Frequency: Evaluation only, no further P.T. DISCHARGE RECOMMENDATIONS Discharge Location: Undetermined Support/Services Needed: No needs Other Discharge Equipment: no DME needs Transport Needs at Discharge: Personal vehicle
--- NOTE | 2025-02-19 14:22 | PHARMACY PROGRESS NOTE ---
Best Possible Medication History Admit Date and Time: 02/17/25 7150 Processed by: Pharmacy Medications reviewed in ED?: No Medication History completed: Yes Patient Interview: Pt unable to participate (Pt's son stated she does not take any medication at home and she hasn't gone to the doctor for "ages".) Secondary Source(s): Other family member ([place] (Patient's son, states patient does not take any meds and has not gone to the doctor in "ages.".) [facility] Statement: As the person ultimately responsible for medication therapy, providers are able to order a medication from an existing home medication list in [facility] via the "Reconcile Routine" prior to Confirmation of that medication by fire support specialist. Such practice is discouraged except when the physician, in their clinical judgment, deems that a medical need exists for a medication without regard to previous use.
--- NOTE | 2025-02-19 16:52 | PROVIDER PROGRESS NOTE ---
Subjective Prog Note Date Prog Note Date: 02/19/25 Subjective Subjective: intermittent episodes of paranoia today. she has been able to meet with social work, but unable to assist with POA paperwork as she is not able to engage in conversation long enough without focusing on her paranoid delusions. She feels that her PT evaluation was incomplete. This evening, she seems to think that her son is "settting her up", with the condition of her living situation. And she tells me that she wants things to go back to the way they were. She was able to get a shower this AM with staff assistance, but she does not really appreciate that, and she is irritated about being made to brush her teeth. Current Medications Current Medications Current Medications: Current Medications Generic Name Dose Route Start Last Admin Trade Name Freq PRN Reason Stop Dose Admin Acetaminophen 650 mg 02/17/25 15:39 Acetaminophen 325 Mg Tablet PO Q4HR PRN Pain 1 to 4, or Fever Docusate Sodium 250 - 500 mg 02/18/25 09:00 02/19/25 09:00 Docusate Sodium 250 Mg Capsule PO 250 mg DAILY JOSE Administration Enoxaparin Sodium 40 mg 02/18/25 09:00 02/19/25 10:44 Enoxaparin 40 Mg/0.4 Ml Syringe SUBQ Not Given DAILY JOSE Ondansetron HCl 4 mg 02/17/25 15:39 Ondansetron Odt 4 Mg Tablet TL Q6HR PRN Nausea / Vomiting Polyethylene Glycol 17 gm 02/18/25 09:00 02/19/25 10:46 Polyethylene Glycol 3350 17 Gm Packet PO 17 gm DAILY JOSE Administration Potassium Chloride 40 meq 02/19/25 16:44 Potassium Chloride 20 Meq Tablet PO 02/19/25 16:45 ONCE ONE Risperidone 0.25 mg 02/18/25 21:00 02/18/25 21:59 Risperidone 0.25 Mg Tablet PO 0.25 mg QPM JOSE Administration Sodium Chloride 10 ml 02/17/25 15:39 Sodium Chloride Flush 0.9% 10 Ml Syringe IVP PRN PRN NEEDED PER PROVIDER ORDERS Sodium Chloride 10 ml 02/17/25 17:00 02/19/25 10:47 Sodium Chloride Flush 0.9% 10 Ml Syringe IVP 10 ml 0100,0900,1700 JOSE Administration Objective Vital Signs/Intake & Output Reviewed Vital Signs: Yes Vital Signs: Vital Signs x48h Temp Pulse Resp BP Pulse Ox 02/19/25 12:15 36.1 C L 93 16 145/79 H 93 Intake & Output: Intake & Output 02/16/25 02/17/25 02/18/25 02/19/25 23:59 23:59 23:59 23:59 Intake Total 3200 / 3200 1870 / 1870 640 / 640 Output Total 1200 / 1200 1360 / 1360 475 / 475 Balance 1999 510 / 510 165 / 165 Weight (kg) 57 kg Objective General Appearance: positive No acute distress and Alert Eyes Bilateral: positive PERRL and Conjunctivae nml ENT: positive ENT inspection nml Neck: positive Nml inspection Respiratory: positive No respiratory distress and Breath sounds nml Cardiovascular: positive Regular rate & rhythm Abdomen: positive No distention Back: positive Nml inspection Skin: positive Color nml and No rash Extremities: positive Non-tender Lab Results 02/19/25 10:05 02/19/25 10:05 Other Labs: Lab Results x24hrs 02/19/25 Range/Units 10:05 WBC 7.3 (4.8-10.8) x10^3/uL RBC 4.60 (4.20-5.40) 10^6/uL Hgb 13.4 (12.0-16.0) g/dL Hct 41.2 (37.0-47.0) % MCV 89.6 (81.0-99.0) fL MCH 29.1 (27.0-31.0) pg MCHC 32.5 (32.0-36.0) g/dL RDW 12.6 (12.0-15.0) % Plt Count 208 (130-450) 10^3/uL MPV 11.0 H (7.9-10.8) fL Neut # (Auto) 5.4 (1.5-6.6) 10^3/uL Lymph # (Auto) 1.5 (1.5-3.5) 10^3/uL [place] # (Auto) 0.5 (0.0-1.0) 10^3/uL Eos # (Auto) 0.0 (0.0-0.7) 10^3/uL Baso # (Auto) 0.0 (0.0-0.1) 10^3/uL Absolute Nucleated RBC 0.00 x10^3/uL Nucleated RBC % 0.0 /100WBC Sodium 139 (135-145) mmol/L Potassium 3.1 L (3.5-4.5) mmol/L Chloride 103 (101-111) mmol/L Carbon Dioxide 29 (21-32) mmol/L Anion Gap 7.0 (6-13) BUN 14 (6-20) mg/dL Creatinine 0.7 (0.6-1.3) mg/dL Estimated GFR (MDRD) 81 L (>89) Glucose 173 H (74-104) mg/dL Calcium 9.0 (8.5-10.3) mg/dL Phosphorus 2.2 L (2.5-5.0) mg/dL Magnesium 1.9 (1.7-2.3) mg/dL Assessment/Plan Problem List (1) Altered mental status: Impression: presents to the emergency department with altered mental status after welfare check. Her MRI is negative. Her labs have normalized as I would expect in a person that did not eat and drink and then was given water and nutrition. Family has been meeting with social work. I discussed her code status with her son today, and will change her code status to DNR. She would never want to live in a state of dependency on others. What I am understanding about Jackie is that she has had mental health issues, that have gone untreated for most of her life. There are things about her past that her son has some minor clues about but that he really does not have the full story. She probably had significant traumatic events early in her life but no one seems to know more than that. She has always been rather odd and her son relates to social work what sounds like episodes of psychosis intermittently throughout her adult life. She has never been trustful of services that might help her. Her son is unaware of where her income comes from. She has never applied for health insurance. It is quite possible that she does not have Medicare. After getting out of the [employer] she never worked, but her did have a full [employer] career which hopefully will entitle her to some benefits. Her daily life recently consists of riding the bus into [place]. She likes to go into the coffee shops and get coffee although she has been told that she may not return to several of them due to behavioral outbursts and disturbances. She also periodically stops into her daughter in law's workplace at [employer] As far as her son and [id number] knows she pays all of her bills. She does not have a refrigerator in her home and she has not allowed them to remove the nonworking refrigerator for years. The only food item that they found in her home was a box of Cheerios. Her home reportedly is very cluttered. her DIL and son report that the toilet had not been flushed in quite some time. There were buckets of water scattered about. There were rodent feces seen. It is clear that this patient has a self-care deficit that is acute in nature but probably smoldering for quite some time. She shows clear evidence that she is not able to care for herself. She did well with PT. She is safe here, but there is no longer a medical need for her to be here. She is medically clear today, 02/19/25 (2) Dehydration: Impression: Resolved. mild hypokalemia, being repleted. not a reason to stay in the hospital. (3) Self-care deficit: Impression: I believe this is an acute on chronic self-care deficit. This patient presents to the ED unwashed, in soiled and foul smelling clothing. She came in dehydrated and appears to have some mild degree of malnourishment. Descriptions of her home involve rodent feces and states of severe uncleanliness. The toilet has not been flushed in some time. 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 She has no mental health diagnosis, because she has gone undoctored. she is very suspicious of others. Those that know her in the community describe her as grouchy, accusatory and paranoid. psychiatric opinion is that she has thought processes that are impaired by paranoia and disorganized thinking. Per recommendations, I have started risperdal 0.25 at HS to try to assist with her paranoia. (4) Lactic acidosis: Impression: Resolved. Likely due to dehydration. This patient's diagnosis and treatment plan was discussed this AM with attending physician as a part of multi disciplinary rounding meeting. I have spent 45 minutes in the care of this patient today. This includes time [id number], review and ordering of diagnostic imaging and laboratory studies.
[2025-02-19] MEDS: POTASSIUM CHLORIDE 20 MEQ TABLET PO ONE (17:14)
[2025-02-20 05:11] LABS: HCT - HEMATOCRIT 38.2 % (37.0-47.0); HGB - HEMOGLOBIN 12.2 g/dL (12.0-16.0); MEAN PLATELET VOLUME 10.8 fL (7.9-10.8); NRBC ABSOLUTE COUNT (AUTO) 0.00 x10^3/uL; NUCLEATED RED BLOOD CELLS AUTO 0.0 /100WBC; PLT - PLATELET COUNT 169 10^3/uL (130-450); RED CELL DISTRIBUTION WIDTH 12.8 % (12.0-15.0)
[2025-02-20 05:26] LABS: BUN - BLOOD UREA NITROGEN 14.0 mg/dL (6-20); CARBON DIOXIDE - CO2 29.0 mmol/L (21-32); CREATININE 0.7 mg/dL (0.6-1.3); GFR - MDRD 81.0 (>89)
--- NOTE | 2025-02-20 12:00 | PROVIDER PROGRESS NOTE ---
Subjective Prog Note Date Prog Note Date: 02/20/25 Subjective Subjective: She is sitting up, having finished her lunch. I am encouraging her to eat her cookies and drink her milk, and she seems somewhat offended by this. Current Medications Current Medications Current Medications: Current Medications Generic Name Dose Route Start Last Admin Trade Name Freq PRN Reason Stop Dose Admin Acetaminophen 650 mg 02/17/25 15:39 Acetaminophen 325 Mg Tablet PO Q4HR PRN Pain 1 to 4, or Fever Docusate Sodium 250 - 500 mg 02/18/25 09:00 02/20/25 08:05 Docusate Sodium 250 Mg Capsule PO Not Given DAILY JOSE Enoxaparin Sodium 40 mg 02/18/25 09:00 02/20/25 08:05 Enoxaparin 40 Mg/0.4 Ml Syringe SUBQ Not Given DAILY JOSE Multivitamins/Minerals 1 tab 02/20/25 12:00 Multivitamin W/Minerals Tablet PO DAILYWM JOSE Ondansetron HCl 4 mg 02/17/25 15:39 Ondansetron Odt 4 Mg Tablet TL Q6HR PRN Nausea / Vomiting Polyethylene Glycol 17 gm 02/18/25 09:00 02/20/25 08:18 Polyethylene Glycol 3350 17 Gm Packet PO 17 gm DAILY JOSE Administration Risperidone 0.25 mg 02/18/25 21:00 02/19/25 21:21 Risperidone 0.25 Mg Tablet PO 0.25 mg QPM JOSE Administration Objective Vital Signs/Intake & Output Reviewed Vital Signs: Yes Vital Signs: Vital Signs x48h Temp Pulse Resp BP Pulse Ox 02/20/25 08:00 36.5 C 97 12 130/78 97 02/20/25 06:12 36.5 C 93 18 128/73 96 Intake & Output: Intake & Output 02/17/25 02/18/25 02/19/25 02/20/25 23:59 23:59 23:59 23:59 Intake Total 3200 / 3200 1870 / 1870 1480 / 1480 240 / 240 Output Total 1200 / 1200 1360 / 1360 850 / 850 400 / 400 Balance 1999 510 / 510 630 / 630 -160 / -160 Weight (kg) 57 kg Objective General Appearance: positive No acute distress and Alert Eyes Bilateral: positive PERRL and Conjunctivae nml ENT: positive ENT inspection nml Neck: positive Nml inspection Respiratory: positive No respiratory distress and Breath sounds nml Cardiovascular: positive Regular rate & rhythm Abdomen: positive No distention Back: positive Nml inspection Skin: positive Color nml and No rash Extremities: positive Non-tender Lab Results 02/20/25 05:04 02/20/25 05:04 Other Labs: Lab Results x24hrs 02/20/25 Range/Units 05:04 WBC 7.4 (4.8-10.8) x10^3/uL RBC 4.21 (4.20-5.40) 10^6/uL Hgb 12.2 (12.0-16.0) g/dL Hct 38.2 (37.0-47.0) % MCV 90.7 (81.0-99.0) fL MCH 29.0 (27.0-31.0) pg MCHC 31.9 L (32.0-36.0) g/dL RDW 12.8 (12.0-15.0) % Plt Count 169 (130-450) 10^3/uL MPV 10.8 (7.9-10.8) fL Neut # (Auto) 5.2 (1.5-6.6) 10^3/uL Lymph # (Auto) 1.6 (1.5-3.5) 10^3/uL [place] # (Auto) 0.5 (0.0-1.0) 10^3/uL Eos # (Auto) 0.1 (0.0-0.7) 10^3/uL Baso # (Auto) 0.0 (0.0-0.1) 10^3/uL Absolute Nucleated RBC 0.00 x10^3/uL Nucleated RBC % 0.0 /100WBC Sodium 142 (135-145) mmol/L Potassium 4.0 (3.5-4.5) mmol/L Chloride 109 (101-111) mmol/L Carbon Dioxide 29 (21-32) mmol/L Anion Gap 4.0 L (6-13) BUN 14 (6-20) mg/dL Creatinine 0.7 (0.6-1.3) mg/dL Estimated GFR (MDRD) 81 L (>89) Glucose 133 H (74-104) mg/dL Calcium 8.8 (8.5-10.3) mg/dL Assessment/Plan Problem List (1) Altered mental status: Impression: presents to the emergency department with altered mental status after welfare check. Her MRI is negative. Her labs have normalized as I would expect in a person that did not eat and drink and then was given water and nutrition. Family has been meeting with social work. I discussed her code status with her son; her code status is DNR. She would never want to live in a state of dependency on others. What I am understanding about Jackie is that she has had mental health issues, that have gone untreated for most of her life. There are things about her past that her son has some minor clues about but that he really does not have the full story. She probably had significant traumatic events early in her life but no one seems to know more than that. She has always been rather odd and her son relates to social work what sounds like episodes of psychosis intermittently throughout her adult life. She has never been trustful of services that might help her. Her son is unaware of where her income comes from. She has never applied for health insurance. It is quite possible that she does not have Medicare. After getting out of the [employer] she never worked, but her did have a full [employer] career which hopefully will entitle her to some benefits. Her daily life recently consists of riding the bus into [place]. She likes to go into the coffee shops and get coffee although she has been told that she may not return to several of them due to behavioral outbursts and disturbances. She also periodically stops into her daughter in law's workplace at [employer]. As far as her son and [id number] knows she pays all of her bills. She does not have a refrigerator in her home and she has not allowed them to remove the nonworking refrigerator for years. The only food item that they found in her home was a box of Cheerios. Her home reportedly is very cluttered. her DIL and son report that the toilet had not been flushed in quite some time. There were buckets of water scattered about. There were rodent feces seen. It is clear that this patient has a self-care deficit that is acute in nature but probably smoldering for quite some time. She shows clear evidence that she is not able to care for herself. She was seen by [facility] on 12/14PM and recommendation was for jail, but there is no bed available. [facility] is following up with facilities that could potentially have a bed, and if there is one, then she can potentially go there, but the hold would be for 5-21 days. She is alert and oriented to person place time and situation. But she does not seem to have a good mission manager on reality. Her associations are tangential and in conversation it is difficult to bring her back around to delivering meaningful information about how she might be able to meet her own needs of food water and correction. At this time she is likely not competent to sign power of tax associate attorney, however I think she is becoming more lucid. If she is not detainable I think then by default she is able to make her own decisions. And would be able to sign power of tax associate attorney to her son if she were willing to do that. Another avenue for meeting her care needs would be legal guardianship but this will take some time. At the point that she is decisional and not detainable I think she then meets criteria for discharge from the hospital, although I have concerns that she will likely go down the same road and become readmitted. Social work will try to obtain community resources but in the past she has been unwilling and unable to allow others and to assist her in the community. She did well with PT. She is safe here, but there is no longer a medical need for her to be here. She is medically clear today, And has been medically clear since 02/19/2025. (2) Dehydration: Impression: Resolved. She will get 1 more set of daily labs and then we will discontinue labs. (3) Self-care deficit: Impression: I believe this is an acute on chronic self-care deficit. This patient presents to the ED unwashed, in soiled and foul smelling clothing. She came in dehydrated and appears to have some mild degree of malnourishment. Descriptions of her home involve rodent feces and states of severe uncleanliness. The toilet has not been flushed in some time. 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 She has no mental health diagnosis, because she has gone undoctored. she is very suspicious of others. Those that know her in the community describe her as grouchy, accusatory and paranoid. psychiatric opinion is that she has thought processes that are impaired by paranoia and disorganized thinking. Per recommendations, I have started risperdal 0.25 at HS to try to assist with her paranoia. (4) Lactic acidosis: Impression: Resolved. Likely due to dehydration. This patient's diagnosis and treatment plan was discussed this AM with attending physician as a part of multi disciplinary rounding meeting. I have spent 30 minutes in the care of this patient today. This includes time [id number], review and ordering of diagnostic imaging and laboratory studies,As well as working with social work on appropriate disposition for this patient..
[2025-02-20] MEDS: MULTIVITAMIN W/MINERALS TABLET PO SCH (12:38)
[2025-02-21 05:05] LABS: HCT - HEMATOCRIT 40.5 % (37.0-47.0); HGB - HEMOGLOBIN 13.1 g/dL (12.0-16.0); MEAN PLATELET VOLUME 10.9 fL (7.9-10.8); NRBC ABSOLUTE COUNT (AUTO) 0.00 x10^3/uL; NUCLEATED RED BLOOD CELLS AUTO 0.0 /100WBC; PLT - PLATELET COUNT 178 10^3/uL (130-450); RED CELL DISTRIBUTION WIDTH 12.9 % (12.0-15.0)
[2025-02-21 05:30] LABS: BUN - BLOOD UREA NITROGEN 14.0 mg/dL (6-20); CARBON DIOXIDE - CO2 30.0 mmol/L (21-32); CREATININE 0.6 mg/dL (0.6-1.3); GFR - MDRD 97.0 (>89)
--- NOTE | 2025-02-21 11:36 | PROVIDER PROGRESS NOTE ---
Subjective Prog Note Date Prog Note Date: 02/21/25 Subjective Subjective: delusional. Thinks that the cups of water and juice on her tray table are leftovers from someone else. refuses to brush her teeth . Current Medications Current Medications Current Medications: Current Medications Generic Name Dose Route Start Last Admin Trade Name Freq PRN Reason Stop Dose Admin Acetaminophen 650 mg 02/17/25 15:39 Acetaminophen 325 Mg Tablet PO Q4HR PRN Pain 1 to 4, or Fever Docusate Sodium 250 - 500 mg 02/18/25 09:00 02/21/25 09:36 Docusate Sodium 250 Mg Capsule PO Not Given DAILY JOSE Enoxaparin Sodium 40 mg 02/18/25 09:00 02/21/25 09:36 Enoxaparin 40 Mg/0.4 Ml Syringe SUBQ Not Given DAILY JOSE Multivitamins/Minerals 1 tab 02/20/25 12:00 02/21/25 09:39 Multivitamin W/Minerals Tablet PO 1 tab DAILYWM JOSE Administration Ondansetron HCl 4 mg 02/17/25 15:39 Ondansetron Odt 4 Mg Tablet TL Q6HR PRN Nausea / Vomiting Polyethylene Glycol 17 gm 02/18/25 09:00 02/21/25 09:36 Polyethylene Glycol 3350 17 Gm Packet PO 17 gm DAILY JOSE Administration Risperidone 0.25 mg 02/18/25 21:00 02/20/25 21:00 Risperidone 0.25 Mg Tablet PO 0.25 mg QPM JOSE Administration Objective Vital Signs/Intake & Output Reviewed Vital Signs: Yes Vital Signs: Vital Signs x48h Temp Pulse Resp BP Pulse Ox 02/21/25 11:00 36.5 C 107 H 16 126/76 95 Intake & Output: Intake & Output 02/18/25 02/19/25 02/20/25 02/21/25 23:59 23:59 23:59 23:59 Intake Total 1870 / 1870 1480 / 1480 760 / 760 360 / 360 Output Total 1360 / 1360 850 / 850 1010 / 1010 Balance 510 / 510 630 / 630 -250 / -250 360 / 360 Objective General Appearance: positive No acute distress and Alert Eyes Bilateral: positive PERRL and Conjunctivae nml ENT: positive ENT inspection nml Neck: positive Nml inspection Respiratory: positive No respiratory distress and Breath sounds nml Cardiovascular: positive Regular rate & rhythm Abdomen: positive No distention Back: positive Nml inspection Skin: positive Color nml and No rash Extremities: positive Non-tender Lab Results 02/21/25 04:50 02/21/25 04:50 Other Labs: Lab Results x24hrs 02/21/25 02/20/25 Range/Units 04:50 13:42 WBC 6.7 (4.8-10.8) x10^3/uL RBC 4.45 (4.20-5.40) 10^6/uL Hgb 13.1 (12.0-16.0) g/dL Hct 40.5 (37.0-47.0) % MCV 91.0 (81.0-99.0) fL MCH 29.4 (27.0-31.0) pg MCHC 32.3 (32.0-36.0) g/dL RDW 12.9 (12.0-15.0) % Plt Count 178 (130-450) 10^3/uL MPV 10.9 H (7.9-10.8) fL Neut # (Auto) 3.8 (1.5-6.6) 10^3/uL Lymph # (Auto) 2.2 (1.5-3.5) 10^3/uL [place] # (Auto) 0.5 (0.0-1.0) 10^3/uL Eos # (Auto) 0.1 (0.0-0.7) 10^3/uL Baso # (Auto) 0.0 (0.0-0.1) 10^3/uL Absolute Nucleated RBC 0.00 x10^3/uL Nucleated RBC % 0.0 /100WBC Sodium 140 (135-145) mmol/L Potassium 4.2 (3.5-4.5) mmol/L Chloride 104 (101-111) mmol/L Carbon Dioxide 30 (21-32) mmol/L Anion Gap 6.0 (6-13) BUN 14 (6-20) mg/dL Creatinine 0.6 (0.6-1.3) mg/dL Estimated GFR (MDRD) 97 (>89) Glucose 103 (74-104) mg/dL Calcium 8.8 (8.5-10.3) mg/dL SARS-CoV-2 (PCR) NOT DETECTED Assessment/Plan Problem List (1) Altered mental status: Impression: presents to the emergency department with altered mental status after welfare check. Her MRI is negative. Her labs have normalized as I would expect in a person that did not eat and drink and then was given water and nutrition. Family has been meeting with social work. I discussed her code status with her son; her code status is DNR. She would never want to live in a state of dependency on others. What I am understanding about Jackie is that she has had mental health issues, that have gone untreated for most of her life. There are things about her past that her son has some minor clues about but that he really does not have the full story. She probably had significant traumatic events early in her life but no one seems to know more than that. She has always been rather odd and her son relates to social work what sounds like episodes of psychosis intermittently throughout her adult life. She has never been trustful of services that might help her. Her son is unaware of where her income comes from. She has never applied for health insurance. It is quite possible that she does not have Medicare. After getting out of the [employer] she never worked, but her did have a full [employer] career which hopefully will entitle her to some benefits. Her daily life recently consists of riding the bus into [place]. She likes to go into the coffee shops and get coffee although she has been told that she may not return to several of them due to behavioral outbursts and disturbances. She also periodically stops into her daughter in law's workplace at [employer]. As far as her son and [id number] knows she pays all of her bills. She does not have a refrigerator in her home and she has not allowed them to remove the nonworking refrigerator for years. The only food item that they found in her home was a box of Cheerios. Her home reportedly is very cluttered. her DIL and son report that the toilet had not been flushed in quite some time. There were buckets of water scattered about. There were rodent feces seen. It is clear that this patient has a self-care deficit that is acute in nature but probably smoldering for quite some time. She shows clear evidence that she is not able to care for herself. She was seen by [facility] on 12/14PM and recommendation was for long term, but there is no bed available. [facility] is following up with facilities that could potentially have a bed, and if there is one, then she can potentially go there, but the hold would be for 5-21 days. 02/21: below description hold true for several days... She is alert and oriented to person place time and situation. But she does not seem to have a good tangled yarn spool straightener on reality. Her associations are tangential and in conversation it is difficult to bring her back around to delivering meaningful information about how she might be able to meet her own needs of food water and alf. At this time she is likely not competent to sign power of patient case coordinator, however I think she is becoming more lucid. If she is not detainable I think then by default she is able to make her own decisions. And would be able to sign power of patient case coordinator to her son if she were willing to do that. Another avenue for meeting her care needs would be legal guardianship but this will take some time. At the point that she is decisional and not detainable I think she then meets criteria for discharge from the hospital, although I have concerns that she will likely go down the same road and become readmitted. Social work will try to obtain community resources but in the past she has been unwilling and unable to allow others and to assist her in the community. She did well with PT. She is safe here, but there is no longer a medical need for her to be here. She is medically clear today, And has been medically clear since 02/19/2025. (2) Dehydration: Impression: Resolved. She will get 1 more set of daily labs and then we will discontinue labs. (3) Self-care deficit: Impression: I believe this is an acute on chronic self-care deficit. This patient presents to the ED unwashed, in soiled and foul smelling clothing. She came in dehydrated and appears to have some mild degree of malnourishment. Descriptions of her home involve rodent feces and states of severe uncleanliness. The toilet has not been flushed in some time. when she is given personal care items, she understands what to do with them (ie toothbrush, toothpaste, cup of water and basin) but refuses to use them. 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 She has no mental health diagnosis, because she has gone undoctored. she is very suspicious of others. Those that know her in the community describe her as grouchy, accusatory and paranoid. psychiatric opinion is that she has thought processes that are impaired by paranoia and disorganized thinking. Per recommendations, I have started risperdal 0.25 at HS to try to assist with her paranoia. This has been ongoing for several days, she has been complaint with therapy. I think there is a chance she would benefit from ongoing psychiatric med management, which is why long term and transfer might benefit her greatly. (4) Lactic acidosis: Impression: Resolved. Likely due to dehydration. This patient's diagnosis and treatment plan was discussed this AM with attending physician as a part of multi disciplinary rounding meeting. I have spent 48 minutes in the care of this patient today. This includes time [id number], review and ordering of diagnostic imaging and laboratory studies,As well as working with social work on appropriate disposition for this patient..
--- NOTE | 2025-02-21 22:14 | Discharge Summary ---
Discharge Summary Admit Date: 02/17/25 Discharge Date: 02/21/25 Discharging Provider: Milagros Thibodeaux PA-C Primary Care Provider: none Code Status: Do Not Attempt Resuscitation DIAGNOSES Discharge Diagnoses with Status of Each Condition: Altered mental status Dehydration, resolved Self-care deficit Lactic acidosis, resolved HPI History of Present Illness: 79-year-old female with unknown past medical history who presents to the emergency department with altered level of consciousness. According to EMS she was found sitting by her front door. She had not been seen for about 2 days. Initial report say that she is nonverbal but follows commands. When I came in to her room in the emergency department I asked her her name. She did eye me suspiciously and was quiet for a few moments and then told me that her name was Cecelia Camejo. She then starts to speak to me about being thirsty. And then launches into confused speech where she describes that she has water in her toilet. I asked her if she was drinking the water in the toilet and she said no. And then tells me about washing her hair with warm water and cold water. She also tells me that someone was knocking on her door but she did not know if they were knocking on the front door or the back door. And then they brought her here. She is oriented to month and year but not day. She knows that we are in the hospital. When I ask her who her primary care doctor is she looks at me as if pondering my question but then never answers. When I ask her who she calls if she has a problem she says that she figures it out herself. When I ask her who I should call if she is sick in the hospital and unable to tell me anything she simply does not answer my question. Otherwise I cannot elicit any complaints from her. Aside from admitting that she is thirsty.She is unable to tell me anything about her day-to-day life, or how she manages to meet her own needs. CODE STATUS unknown, full code by default. is listed in chart. Per brief Internet search he has been for almost 20 years. Patient possibly has a son also per 's obituary. His name is Omer. HOSPITAL COURSE Hospital Course: 1) Altered mental status: presents to the emergency department with altered mental status after welfare check. Her MRI is negative. Her labs have normalized as I would expect in a person that did not eat and drink and then was given water and nutrition. Family has been meeting with social work. I discussed her code status with her son; her code status is DNR. She would never want to live in a state of dependency on others. What I am understanding about Jackie is that she has had mental health issues, that have gone untreated for most of her life. There are things about her past that her son has some minor clues about but that he really does not have the full story. She probably had significant traumatic events early in her life but no one seems to know more than that. She has always been rather odd and her son relates to social work what sounds like episodes of psychosis intermittently throughout her adult life. She has never been trustful of services that might help her. Her son is unaware of where her income comes from. She has never applied for health insurance. It is quite possible that she does not have Medicare. After getting out of the [employer] she never worked, but her did have a full [employer] career which hopefully will entitle her to some benefits. Her daily life recently consists of riding the bus into [place]. She likes to go into the coffee shops and get coffee although she has been told that she may not return to several of them due to behavioral outbursts and disturbances. She also periodically stops into her daughter in law's workplace at [employer]. As far as her son and [id number] knows she pays all of her bills. She does not have a refrigerator in her home and she has not allowed them to remove the nonworking refrigerator for years. The only food item that they found in her home was a box of Cheerios. Her home reportedly is very cluttered. her DIL and son report that the toilet had not been flushed in quite some time. There were buckets of water scattered about. There were rodent feces seen. It is clear that this patient has a self-care deficit that is acute in nature but probably smoldering for quite some time. She shows clear evidence that she is not able to care for herself. She was seen by [facility] on 12/14PM and recommendation was for retirement, but there is no bed available. [facility] is following up with facilities that could potentially have a bed, and if there is one, then she can potentially go there, but the hold would be for 5-21 days. We have obtained a bed, but unable to get patient there due to severe weather. Awaiting transport at the time of this note. She is alert and oriented to person place time and situation. But she does not seem to have a good cryptologic technician on reality. Her associations are tangential and in conversation it is difficult to bring her back around to delivering meaningful information about how she might be able to meet her own needs of food water and halfway. Social work will try to obtain community resources but in the past she has been unwilling and unable to allow others and to assist her in the community. She did well with PT. She is safe here, but there is no longer a medical need for her to be here. She has been medically clear since 02/19/2025. (2) Dehydration: Resolved. (3) Self-care deficit: I believe this is an acute on chronic self-care deficit. This patient presents to the ED unwashed, in soiled and foul smelling clothing. She came in dehydrated and appears to have some mild degree of malnourishment. Descriptions of her home involve rodent feces and states of severe uncleanliness. The toilet has not been flushed in some time. when she is given personal care items, she understands what to do with them (ie toothbrush, toothpaste, cup of water and basin) but refuses to use them. 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 She has no mental health diagnosis, because she has gone undoctored. she is very suspicious of others. Those that know her in the community describe her as grouchy, accusatory and paranoid. psychiatric opinion is that she has thought processes that are impaired by paranoia and disorganized thinking. We obtained telepsych consultation on 02/18 Per recommendations, I have started risperdal 0.25 at HS to try to assist with her paranoia. This has been ongoing for several days, she has been complaint with therapy. I think there is a chance she would benefit from ongoing psychiatric med management, which is why retirement and transfer might benefit her greatly. (4) Lactic acidosis: I Resolved. Likely due to dehydration. ALLERGIES Allergies Allergy/AdvReac Type Severity Reaction Status Date / Time Unable to Assess Allergy Verified 02/17/25 11:50 PHYSICAL EXAM AT DISCHARGE Vital Signs: Vital Signs x48h Temp Pulse Resp BP Pulse Ox 02/21/25 20:13 36.7 C 89 20 130/72 96 02/21/25 15:58 36.7 C 97 20 135/81 H 96 LABS 02/21/25 04:50 02/21/25 04:50 FOLLOW UP Follow Up: She will be detained under a psych hold, then i would recommend getting case finisher to assist in establishment of primary care and mental lissa care in the community. TIME SPENT Time Spent in Discharge (Minutes): 50 Discharge Plan Discharge Patient Disposition: 02 Transfer Acute Care Hosp Condition: Stable Print Language: Unknown Stand Alone Forms: PCP List Vitals documented within 30 minutes of discharge?: Yes
[2025-02-22 05:27] LABS: HCT - HEMATOCRIT 37.5 % (37.0-47.0); HGB - HEMOGLOBIN 12.0 g/dL (12.0-16.0); MEAN PLATELET VOLUME 10.8 fL (7.9-10.8); NRBC ABSOLUTE COUNT (AUTO) 0.00 x10^3/uL; NUCLEATED RED BLOOD CELLS AUTO 0.0 /100WBC; PLT - PLATELET COUNT 165 10^3/uL (130-450); RED CELL DISTRIBUTION WIDTH 13.0 % (12.0-15.0)
[2025-02-22 05:49] LABS: BUN - BLOOD UREA NITROGEN 16.0 mg/dL (6-20); CARBON DIOXIDE - CO2 29.0 mmol/L (21-32); CREATININE 0.6 mg/dL (0.6-1.3); GFR - MDRD 97.0 (>89)
[2025-02-22 12:09] LABS: GLUCOSE, URINE (UA) Negative (NEGATIVE); KETONES,URINE (UA) Negative (NEGATIVE); OCCULT BLOOD,URINE Large (NEGATIVE)
[2025-02-22 12:18] LABS: SQUAMOUS EPITHELIAL CELL,UR RARE Squamous (<= Few); WBC CLUMPS,URINE PRESENT
[2025-02-22] MEDS: FOSFOMYCIN TROMETHAMINE 3 GM PACKET PO ONE (13:49)
--- NOTE | 2025-02-22 14:08 | PROVIDER PROGRESS NOTE ---
Subjective Prog Note Date Prog Note Date: 02/22/25 Subjective Pt reports feeling: No change Current Medications Current Medications Current Medications: Current Medications Generic Name Dose Route Start Last Admin Trade Name Freq PRN Reason Stop Dose Admin Acetaminophen 650 mg 02/17/25 15:39 Acetaminophen 325 Mg Tablet PO Q4HR PRN Pain 1 to 4, or Fever Docusate Sodium 250 - 500 mg 02/18/25 09:00 02/22/25 09:18 Docusate Sodium 250 Mg Capsule PO Not Given DAILY JOSE Enoxaparin Sodium 40 mg 02/18/25 09:00 02/22/25 09:18 Enoxaparin 40 Mg/0.4 Ml Syringe SUBQ Not Given DAILY JOSE Multivitamins/Minerals 1 tab 02/20/25 12:00 02/22/25 09:18 Multivitamin W/Minerals Tablet PO 1 tab DAILYWM JOSE Administration Ondansetron HCl 4 mg 02/17/25 15:39 Ondansetron Odt 4 Mg Tablet TL Q6HR PRN Nausea / Vomiting Polyethylene Glycol 17 gm 02/18/25 09:00 02/22/25 09:18 Polyethylene Glycol 3350 17 Gm Packet PO 17 gm DAILY JOSE Administration Risperidone 0.25 mg 02/18/25 21:00 02/21/25 22:07 Risperidone 0.25 Mg Tablet PO 0.25 mg QPM JOSE Administration Objective Vital Signs/Intake & Output Reviewed Vital Signs: Yes Vital Signs: Vital Signs x48h Temp Pulse Resp BP Pulse Ox 02/22/25 08:00 97.7 F 85 18 147/80 H 99 Intake & Output: Intake & Output 02/19/25 02/20/25 02/21/25 02/22/25 23:59 23:59 23:59 23:59 Intake Total 1480 / 1480 760 / 760 716 / 716 360 / 360 Output Total 850 / 850 1010 / 1010 175 / 175 Balance 630 / 630 -250 / -250 541 / 541 360 / 360 Objective General Appearance: positive No acute distress and Alert Eyes Bilateral: positive PERRL and Conjunctivae nml ENT: positive ENT inspection nml Neck: positive Nml inspection Respiratory: positive No respiratory distress and Breath sounds nml Cardiovascular: positive Regular rate & rhythm Abdomen: positive No distention Back: positive Nml inspection Skin: positive Color nml and No rash Extremities: positive Non-tender Neurologic/Psychiatric: positive Other (Made eye contact briefly when I entered the room. Refused to look at me after that. Does not speak) Lab Results 02/22/25 05:15 02/22/25 05:15 Other Labs: Lab Results x24hrs 02/22/25 02/22/25 Range/Units 12:00 05:15 WBC 7.2 (4.8-10.8) x10^3/uL RBC 4.06 L (4.20-5.40) 10^6/uL Hgb 12.0 (12.0-16.0) g/dL Hct 37.5 (37.0-47.0) % MCV 92.4 (81.0-99.0) fL MCH 29.6 (27.0-31.0) pg MCHC 32.0 (32.0-36.0) g/dL RDW 13.0 (12.0-15.0) % Plt Count 165 (130-450) 10^3/uL MPV 10.8 (7.9-10.8) fL Neut # (Auto) 4.7 (1.5-6.6) 10^3/uL Lymph # (Auto) 1.9 (1.5-3.5) 10^3/uL [place] # (Auto) 0.5 (0.0-1.0) 10^3/uL Eos # (Auto) 0.1 (0.0-0.7) 10^3/uL Baso # (Auto) 0.1 (0.0-0.1) 10^3/uL Absolute Nucleated RBC 0.00 x10^3/uL Nucleated RBC % 0.0 /100WBC Sodium 139 (135-145) mmol/L Potassium 4.0 (3.5-4.5) mmol/L Chloride 104 (101-111) mmol/L Carbon Dioxide 29 (21-32) mmol/L Anion Gap 6.0 (6-13) BUN 16 (6-20) mg/dL Creatinine 0.6 (0.6-1.3) mg/dL Estimated GFR (MDRD) 97 (>89) Glucose 112 H (74-104) mg/dL Calcium 8.4 L (8.5-10.3) mg/dL Urine Color LIGHT RED Urine Clarity Cloudy (CLEAR) Urine pH 7.0 (5.0-7.5) PH Ur Specific [place] 1.020 (1.002-1.030) Urine Protein 100 H (NEGATIVE) mg/dL Urine Glucose (UA) Negative (NEGATIVE) mg/dL Urine Ketones Negative (NEGATIVE) mg/dL Urine Occult Blood Large (NEGATIVE) Urine Nitrite Negative (NEGATIVE) Urine Bilirubin Negative (NEGATIVE) Urine Urobilinogen 4 H (NORMAL) E.U./dL Ur Leukocyte Esterase Large (NEGATIVE) Urine RBC TNTC H (0-5) /HPF Urine WBC >25 H (0-5) /HPF Urine WBC Clumps PRESENT Ur Squamous Epith Cells RARE Squamous (<= Few) Urine Bacteria Many H (None Seen) /HPF Ur Microscopic Review INDICATED Urine Culture Comments INDICATED Assessment/Plan Problem List (1) Altered mental status: Impression: Presented to ED after welfare check. She was found outside her home. She was dehydrated and malnourished on presentation, this has improved. She has a longstanding history of paranoia. She is obviously unable to care for herself, and [facility] detained her on these grounds. Due to weather conditions, we are not able to transport her to the next level of care. She will remain here until that placement is secured. Continuing Risperdal. Today is avoidable day 1 (2) Dehydration: Impression: Resolved. She will get 1 more set of daily labs and then we will discontinue labs. (3) Self-care deficit: Impression: I believe this is an acute on chronic self-care deficit. This patient presents to the ED unwashed, in soiled and foul smelling clothing. She came in dehydrated and appears to have some mild degree of malnourishment. Descriptions of her home involve rodent feces and states of severe uncleanliness. The toilet has not been flushed in some time. when she is given personal care items, she understands what to do with them (ie toothbrush, toothpaste, cup of water and basin) but refuses to use them. 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 She has no mental health diagnosis, because she has gone undoctored. she is very suspicious of others. Those that know her in the community describe her as grouchy, accusatory and paranoid. psychiatric opinion is that she has thought processes that are impaired by paranoia and disorganized thinking. Per recommendations, I have started risperdal 0.25 at HS to try to assist with her paranoia. This has been ongoing for several days, she has been complaint with therapy. I think there is a chance she would benefit from ongoing psychiatric med management, which is why nursing home and transfer might benefit her greatly. (4) Lactic acidosis: Impression: Resolved. Likely due to dehydration.
--- NOTE | 2025-02-23 11:57 | PROVIDER PROGRESS NOTE ---
Subjective Prog Note Date Prog Note Date: 02/23/25 Subjective Pt reports feeling: No change Current Medications Current Medications Current Medications: Current Medications Generic Name Dose Route Start Last Admin Trade Name Freq PRN Reason Stop Dose Admin Acetaminophen 650 mg 02/17/25 15:39 Acetaminophen 325 Mg Tablet PO Q4HR PRN Pain 1 to 4, or Fever Docusate Sodium 250 - 500 mg 02/18/25 09:00 02/23/25 08:52 Docusate Sodium 250 Mg Capsule PO Not Given DAILY JOSE Enoxaparin Sodium 40 mg 02/18/25 09:00 02/23/25 08:52 Enoxaparin 40 Mg/0.4 Ml Syringe SUBQ Not Given DAILY JOSE Multivitamins/Minerals 1 tab 02/20/25 12:00 02/23/25 08:51 Multivitamin W/Minerals Tablet PO 1 tab DAILYWM JOSE Administration Ondansetron HCl 4 mg 02/17/25 15:39 Ondansetron Odt 4 Mg Tablet TL Q6HR PRN Nausea / Vomiting Polyethylene Glycol 17 gm 02/18/25 09:00 02/23/25 08:52 Polyethylene Glycol 3350 17 Gm Packet PO 17 gm DAILY JOSE Administration Risperidone 0.25 mg 02/18/25 21:00 02/22/25 20:24 Risperidone 0.25 Mg Tablet PO 0.25 mg QPM JOSE Administration Objective Vital Signs/Intake & Output Reviewed Vital Signs: Yes Vital Signs: Vital Signs x48h Temp Pulse Resp BP Pulse Ox 02/23/25 08:00 97.7 F 86 16 156/76 H 98 02/23/25 04:06 97.7 F 78 16 133/70 H 96 Intake & Output: Intake & Output 02/20/25 02/21/25 02/22/25 02/23/25 23:59 23:59 23:59 23:59 Intake Total 760 / 760 716 / 716 900 / 900 720 / 720 Output Total 1010 / 1010 175 / 175 100 / 100 Balance -250 / -250 541 / 541 800 / 800 720 / 720 Objective General Appearance: positive No acute distress and Alert Eyes Bilateral: positive PERRL and Conjunctivae nml ENT: positive ENT inspection nml Neck: positive Nml inspection Respiratory: positive No respiratory distress and Breath sounds nml Cardiovascular: positive Regular rate & rhythm Abdomen: positive No distention Back: positive Nml inspection Skin: positive Color nml and No rash Extremities: positive Non-tender Neurologic/Psychiatric: positive Other (Made eye contact briefly when I entered the room. Refused to look at me after that. Does not speak) Lab Results 02/22/25 05:15 02/22/25 05:15 Other Labs: Lab Results x24hrs 02/22/25 Range/Units 12:00 Urine Color LIGHT RED Urine Clarity Cloudy (CLEAR) Urine pH 7.0 (5.0-7.5) PH Ur Specific [place] 1.020 (1.002-1.030) Urine Protein 100 H (NEGATIVE) mg/dL Urine Glucose (UA) Negative (NEGATIVE) mg/dL Urine Ketones Negative (NEGATIVE) mg/dL Urine Occult Blood Large (NEGATIVE) Urine Nitrite Negative (NEGATIVE) Urine Bilirubin Negative (NEGATIVE) Urine Urobilinogen 4 H (NORMAL) E.U./dL Ur Leukocyte Esterase Large (NEGATIVE) Urine RBC TNTC H (0-5) /HPF Urine WBC >25 H (0-5) /HPF Urine WBC Clumps PRESENT Ur Squamous Epith Cells RARE Squamous (<= Few) Urine Bacteria Many H (None Seen) /HPF Ur Microscopic Review INDICATED Urine Culture Comments INDICATED Assessment/Plan Problem List (1) Self-care deficit: Impression: I believe this is an acute on chronic self-care deficit. This patient presents to the ED unwashed, in soiled and foul smelling clothing. She came in dehydrated and appears to have some mild degree of malnourishment. Descriptions of her home involve rodent feces and states of severe uncleanliness. The toilet has not been flushed in some time. when she is given personal care items, she understands what to do with them (ie toothbrush, toothpaste, cup of water and basin) but refuses to use them. 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 She has no mental health diagnosis, because she has gone undoctored. she is very suspicious of others. Those that know her in the community describe her as grouchy, accusatory and paranoid. psychiatric opinion is that she has thought processes that are impaired by paranoia and disorganized thinking. Per telepsych recommendation, Risperdal 0.2 5 at night has been ordered to assist with her paranoia. We will continue this. This has been ongoing for several days, she has been complaint with therapy. I think there is a chance she would benefit from ongoing psychiatric med management, which is why longterm and transfer might benefit her greatly. 02/23: Remains medically clear for discharge, pursuing placement at this time. Nonbillable rounding (2) Altered mental status: Impression: Presented to ED after welfare check. She was found outside her home. She was dehydrated and malnourished on presentation, this has improved. She has a longstanding history of paranoia. She is obviously unable to care for herself, and DCR detained her on these grounds. Due to weather conditions, we are not able to transport her to the next level of care. She will remain here until that placement is secured. Continuing Risperdal. Today is avoidable day 1 (3) Dehydration: Impression: Resolved. (4) Lactic acidosis: Impression: Resolved. Likely due to dehydration.
--- NOTE | 2025-02-24 11:13 | PROVIDER PROGRESS NOTE ---
Subjective Prog Note Date Prog Note Date: 02/24/25 Subjective Pt reports feeling: No change Current Medications Current Medications Current Medications: Current Medications Generic Name Dose Route Start Last Admin Trade Name Freq PRN Reason Stop Dose Admin Acetaminophen 650 mg 02/17/25 15:39 Acetaminophen 325 Mg Tablet PO Q4HR PRN Pain 1 to 4, or Fever Docusate Sodium 250 - 500 mg 02/18/25 09:00 02/24/25 09:36 Docusate Sodium 250 Mg Capsule PO 250 mg DAILY JOSE Administration Enoxaparin Sodium 40 mg 02/18/25 09:00 02/24/25 09:47 Enoxaparin 40 Mg/0.4 Ml Syringe SUBQ Not Given DAILY JOSE Lisinopril 20 mg 02/23/25 12:00 02/24/25 09:37 Lisinopril 20 Mg Tablet PO 20 mg DAILY JOSE Administration Multivitamins/Minerals 1 tab 02/20/25 12:00 02/24/25 09:36 Multivitamin W/Minerals Tablet PO 1 tab DAILYWM JOSE Administration Ondansetron HCl 4 mg 02/17/25 15:39 Ondansetron Odt 4 Mg Tablet TL Q6HR PRN Nausea / Vomiting Polyethylene Glycol 17 gm 02/18/25 09:00 02/24/25 09:36 Polyethylene Glycol 3350 17 Gm Packet PO 17 gm DAILY JOSE Administration Risperidone 0.25 mg 02/18/25 21:00 02/23/25 20:47 Risperidone 0.25 Mg Tablet PO 0.25 mg QPM JOSE Administration Objective Vital Signs/Intake & Output Reviewed Vital Signs: Yes Vital Signs: Vital Signs x48h Temp Pulse Resp BP Pulse Ox 02/24/25 08:43 97.3 F L 91 20 123/60 94 02/24/25 05:46 97.3 F L 69 14 122/61 95 Intake & Output: Intake & Output 02/21/25 02/22/25 02/23/25 02/24/25 23:59 23:59 23:59 23:59 Intake Total 716 / 716 900 / 900 1500 / 1500 120 / 120 Output Total 175 / 175 100 / 100 440 / 440 550 / 550 Balance 541 / 541 800 / 800 1060 / 1060 -430 / -430 Objective General Appearance: positive No acute distress and Alert Eyes Bilateral: positive PERRL and Conjunctivae nml ENT: positive ENT inspection nml Neck: positive Nml inspection Respiratory: positive No respiratory distress and Breath sounds nml Cardiovascular: positive Regular rate & rhythm Abdomen: positive No distention Back: positive Nml inspection Skin: positive Color nml and No rash Extremities: positive Non-tender Neurologic/Psychiatric: positive Other (Does not speak by choice) Lab Results 02/22/25 05:15 02/22/25 05:15 Other Labs: Lab Results x24hrs 02/22/25 Range/Units 12:00 Urine Color LIGHT RED Urine Clarity Cloudy (CLEAR) Urine pH 7.0 (5.0-7.5) PH Ur Specific [place] 1.020 (1.002-1.030) Urine Protein 100 H (NEGATIVE) mg/dL Urine Glucose (UA) Negative (NEGATIVE) mg/dL Urine Ketones Negative (NEGATIVE) mg/dL Urine Occult Blood Large (NEGATIVE) Urine Nitrite Negative (NEGATIVE) Urine Bilirubin Negative (NEGATIVE) Urine Urobilinogen 4 H (NORMAL) E.U./dL Ur Leukocyte Esterase Large (NEGATIVE) Urine RBC TNTC H (0-5) /HPF Urine WBC >25 H (0-5) /HPF Urine WBC Clumps PRESENT Ur Squamous Epith Cells RARE Squamous (<= Few) Urine Bacteria Many H (None Seen) /HPF Ur Microscopic Review INDICATED Urine Culture Comments INDICATED Assessment/Plan Problem List (1) Self-care deficit: Impression: I believe this is an acute on chronic self-care deficit. This patient presents to the ED unwashed, in soiled and foul smelling clothing. She came in dehydrated and appears to have some mild degree of malnourishment. Descriptions of her home involve rodent feces and states of severe uncleanliness. The toilet has not been flushed in some time. when she is given personal care items, she understands what to do with them (ie toothbrush, toothpaste, cup of water and basin) but refuses to use them. 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 She has no mental health diagnosis, because she has gone undoctored. she is very suspicious of others. Those that know her in the community describe her as grouchy, accusatory and paranoid. psychiatric opinion is that she has thought processes that are impaired by paranoia and disorganized thinking. Per telepsych recommendation, Risperdal 0.2 5 at night has been ordered to assist with her paranoia. We will continue this. This has been ongoing for several days, she has been complaint with therapy. I think there is a chance she would benefit from ongoing psychiatric med management, which is why skilled nursing and transfer might benefit her greatly. 02/24: Remains medically clear for discharge, pursuing placement at this time. Nonbillable rounding (2) Altered mental status: Impression: Presented to ED after welfare check. She was found outside her home. She was dehydrated and malnourished on presentation, this has improved. She has a longstanding history of paranoia. She is obviously unable to care for herself, and DCR detained her on these grounds. Due to weather conditions, we are not able to transport her to the next level of care. She will remain here until that placement is secured. Continuing Risperdal. Today is avoidable day 1 (3) Dehydration: Impression: Resolved. (4) Lactic acidosis: Impression: Resolved. Likely due to dehydration.
[2025-02-24] MEDS: SENNA 8.6 MG TABLET PO SCH (17:18)
[2025-02-24] MEDS ORDERED: COD LIVER OIL/ZINC OXIDE 113 GM TUBE TOP PRN (19:09)
--- NOTE | 2025-02-25 13:31 | TELEPSYCH PHYS NOTE ---
[facility] Telepsych Progress Note Reassessment Consult Date: 02/25/25 Initial Assessment Notes: 02/17/25 NOTES REVIEWED Notes: Per record, patient presented to ED on 02/17/2025 per EMS with confusion, paranoia, and dehydration. Chief Complaint: "I think they said something about a flu shot" History of Present Illness: Patient was admitted to medical unit for further evaluation. 79 yr old female is seen on the medical inpatient unit tonight per request of inpatient medical provider due to concerns related to patient's mental health. Per the record, patient had presented to ED on 02/17/2025 per EMS with confusion, paranoia, and dehydration. Patient was admitted to medical unit for further evaluation. Record indicates that social contact worker had met with patient's son and [id number] earlier today and that they reported that patient has demonstrated what appear to be paranoid delusiona l thoughts and behaviors for several years but that they have noticed worsening in her condition recently. Family had reported that patient [place]- does not have a working refrigerator, had paranoia regarding being poisoned, toxic gas, water being poisoned etc. They deny that she has any known psychiatric history, no prior inpatient psychiatric hospitalizations or mental health treatment in the past. Patient is guarded but relatively cooperative. She is alert and oriented to person, place and date (02/18/2025). She is unsure why she is in the hospital or how long she has been in the hospital- thinks she has been here since "January". Responses are slowed at times, patient appears suspicious and hesitant to answer frequently. She is vague regarding history- thought processes are disorganized and she provides irrelevant responses. "You go to school and study, then there's thesis and dissertation, I tried not to plagiarize. My skillet was replaced, sera bought a new one. And I got different can openers. Certain days I go to businesses. I tried to move the tables different, then the time changed happened and here we are". She denies feeling sad or depressed- describes her mood as "embarasse&. She denies suicidal thoughts. Vague in regards to auditory hallucinations- "they have different actions going on"- unable to explain this. Plan Impression/Risk Assessment: denies SI/HIr thought processes are impaired with paranoia and disorganized thinking evident. Based on social contact worker's collateral information obtained from son, there appears to be a history of ment al illness. Ability to care for self appropriately in the home is likely most concerning risk. Treatment - Therapy Recommendations: recommend continued monitoring of medical/mental status at this time. would recommend trial of risperdal 0.25mg PO q hs for paranoia/thought disorder. further evaluation of neurocognitive disorder/dementia is also indicated Pharmacological Recommendations: discussed medication with patient, she currently declines taking any medication- recommend offering risperdal 0.25mg po q hs for paranoia/thought disorder Assessment/ Plan Problem List (1) Self-care deficit: Impression: I believe this is an acute on chronic self-care deficit. This patient presents to the ED unwashed, in soiled and foul smelling clothing. She came in dehydrated and appears to have some mild degree of malnourishment. Descriptions of her home involve rodent feces and states of severe uncleanliness. The toilet has not been flushed in some time. when she is given personal care items, she understands what to do with them (ie toothbrush, toothpaste, cup of water and basin) but refuses to use them. 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 She has no mental health diagnosis, because she has gone undoctored. she is very suspicious of others. Those that know her in the community describe her as grouchy, accusatory and paranoid. psychiatric opinion is that she has thought processes that are impaired by paranoia and disorganized thinking. Per telepsych recommendation, Risperdal 0.2 5 at night has been ordered to assist with her paranoia. We will continue this. This has been ongoing for several days, she has been complaint with therapy. I think there is a chance she would benefit from ongoing psychiatric med management, which is why long-term and transfer might benefit her greatly. 02/24 10:09 - Social work Note [id number]-GvwfflfwyBROCK Kelly Acct Num: [id number] : 1945 Patient Age: 79 Addendum entered by Mercedes Pal&KAYY chavarria 02/24/25 11:02: SW called and spoke with Dayan Brewer, no beds on emotional support unit and no planned discharges over the weekend. Original Note: Pt. is alert but unable or unwilling to answer questions to demonstrate orientation. Pt. makes almost no eye contact and frequently scoffs or rolls her eyes at simple questions and does not answer. SW attempted to engage pt. in conversation or discharge planning and only occasionally was able to get a verbal response. Responses were logical about half the time and demonstrated some paranoia the other half. Pt. did not respond to any questions about where she would like to live, who she could trust to support her in decision making or how SW can assist. At one point SW attempted to relay our strong desire to understand her wishes and explained the diffculty I was having determining if her lack of verbal response was due to cognitive decline or psychiatric concems and pt. responded with -The reason I dont' speak is that I am weighing if what I say is going to change the situation". SW followed up with reflection on feelings of powerlessness and pt. chin quivered and eyes teared up. SW followed up with comments about feelings of loss and hopelessness and pt. nonverbally agreed that she has had thoughts that she wishes she were no longer alive. No further comment could be elicited from the patient on this topic. At another time during our visit pt. commented "You asked if I trust Omer' but the other day they added Carlton and when they asked me that it was an entirely different situation-. Pt. would not expand. SW attempted to offer cognitive eval, explaining that if she were able to participate we could better understand the challenge she is facing and it could help to make good decisions about her care. She did not respond. Pt. will speak more frequently of her remote history but is limited in verbal responses. Her non-verbals seem to convey contempt but it is unclear if this is genuine or if pt. is using an adaptation to avoid conversation that has allowed her to cover for cognitive deficits in the past. SW is unable to determine the extent of cognitive impairment v. psychiatric impairment. Either way the pt. remains acutely unable to care for herself and unable (or unwilling) to provide information that would facilitate application for financial benefits that would allow for placement in a supportive care environment. SW has pursued psych placement and even found accepting facilities but as a result of snowfall/road closures pt. has not been able to be transferred to inpatient psych for further evaluation. In discussion with it is agreed that this would be the best step, as further assessment and treatment would hopefully maximize the patient's ability to engage in her own life planning. SW attempted to reach pt.'s son and there was no answer and no VM. 14:10 - Social work Note [id number],-PHOTOENGRAVER APPRENTICE Accyokasta Marceline: [id number] Doa: 1945 Patient Age: 79 SW met with pt. who is still appropriate for RADHA. Pt. with increased feelings of hopelessness and loss. Pt. unable to participate in decisions about her own care due to the severity of her psychiatric symptoms. Pt. declines placement in inpatient psychiatric care. Pt. is not safe for discharge home and unable to participate in creation of any altemative discharge plan. SW [facility]: [place] has no beds at this time. [place] has one bed but are waiting to hear about transportation. There is concem that weather [place] going [place] get worse and prevent transportation/admission from [facility]. [place] [facility] [place] and let SW know if the bed is open and what Cost heard about transportation. SW will await callback. If bed and transportation are possible DCR evaluation will be requested. Interval History: Patient remains unable to demonstrate ability to meet her own needs, per nursing notes. Described as oriented but primarily hypoverbal in nursing assessments. No aggression or agitation. She has been taking the 0.25mg risperidone for about a week, all doses marked as given. She has been accepted for psych admit, but weather interfered. Patient is calm and cooperative. She is minimally verbal. Asked how she is doing says "just started over again". She says she started drinking againg, fluids, and solid food. Says it is going okay, but she gets blurry after drinking the medicine. She says she ate at home, but went out to get it most of the time. She hasn't driven in a while. She would use transit. She is oriented, but cannot tell me why she is in the hospital. She is thought blocking, does not seem like she loses the question. And then she blocks completely. And I get no more answers. Mental Status Exam Appearance and Attire: Appropriate Attitude and Behavior: Cooperative Speech: IMpoverished Affect and Mood: Flat Association and Thought Process: Periodically logical, otherwise blocked Thought Content: No SI or HI Perception: Denies but is preoccupied Sensorium, memory and orientation: Oriented to self and location but not overall situation Intellectual - Cognitive functioning: No known deficits Insight and Judgement: Impaired and not known to be at baseline Treatment Therapy Recommendations: 79F with long history of odd and paranoid behavior presenting with AMS and evidence of gross self neglect. 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 She has not seen doctors in recorded history, so there is no good baseline to refer to other than neighbor and family reports. That means we cannot rule out the potential for her function to improve with treatment. I would not traveling sales executive opposition to geriatric psych admission, which sounds like it is underway. It may not be unreasonable to attempt PASSR, she'll be a level II, but if local area has something similar to what we call [facility]'s (Mentally Ill Nursing Facilities), she could be a candidate for that level of care as well. Pharmacological Recommendations: Increase Risperidone to 0.5mg nightly If she becomes slowed, stiff, and even less verbal, back it back down to 0.25mg or we might have to consider an alternative Time Spent & Provider Location Telepsych consultation conducted via videoconferencing: Yes List names and roles of persons who participated in consult: Zuly Lowe MD Telepsych Provider Location: [place] Time Spent (Minutes): 45
--- NOTE | 2025-02-25 15:08 | PROVIDER PROGRESS NOTE ---
Subjective Prog Note Date Prog Note Date: 02/25/25 Subjective Pt reports feeling: No change Current Medications Current Medications Current Medications: Current Medications Generic Name Dose Route Start Last Admin Trade Name Freq PRN Reason Stop Dose Admin Acetaminophen 650 mg 02/17/25 15:39 Acetaminophen 325 Mg Tablet PO Q4HR PRN Pain 1 to 4, or Fever Docusate Sodium 250 - 500 mg 02/18/25 09:00 02/25/25 08:25 Docusate Sodium 250 Mg Capsule PO 250 mg DAILY JOSE Administration Enoxaparin Sodium 40 mg 02/18/25 09:00 02/25/25 08:25 Enoxaparin 40 Mg/0.4 Ml Syringe SUBQ Not Given DAILY JOSE Lisinopril 20 mg 02/23/25 12:00 02/25/25 08:25 Lisinopril 20 Mg Tablet PO 20 mg DAILY JOSE Administration Multivitamins/Minerals 1 tab 02/20/25 12:00 02/25/25 08:25 Multivitamin W/Minerals Tablet PO 1 tab DAILYWM JOSE Administration Ondansetron HCl 4 mg 02/17/25 15:39 Ondansetron Odt 4 Mg Tablet TL Q6HR PRN Nausea / Vomiting Polyethylene Glycol 17 gm 02/18/25 09:00 02/25/25 08:25 Polyethylene Glycol 3350 17 Gm Packet PO 17 gm DAILY JOSE Administration Risperidone 0.5 mg 02/25/25 21:00 Risperidone 0.25 Mg Tablet PO QPM JOSE Senna 8.6 - 17.2 mg 02/24/25 17:00 02/25/25 08:25 Senna 8.6 Mg Tablet PO 8.6 mg DAILY JOSE Administration Zinc Oxide 113 gm 02/24/25 19:09 Cod Liver Oil/Zinc Oxide 113 Gm Tube TOP PRN PRN Skin Care Objective Vital Signs/Intake & Output Reviewed Vital Signs: Yes Vital Signs: Vital Signs x48h Temp Pulse Resp BP Pulse Ox 02/25/25 13:00 97.9 F 16 91/59 L 94 02/25/25 07:54 97.7 F 76 18 140/63 H 97 Intake & Output: Intake & Output 02/22/25 02/23/25 02/24/25 02/25/25 23:59 23:59 23:59 23:59 Intake Total 900 / 900 1500 / 1500 600 / 600 360 / 360 Output Total 100 / 100 440 / 440 550 / 550 Balance 800 / 800 1060 / 1060 50 / 50 360 / 360 Objective General Appearance: positive No acute distress and Alert Eyes Bilateral: positive PERRL and Conjunctivae nml ENT: positive ENT inspection nml Neck: positive Nml inspection Respiratory: positive No respiratory distress and Breath sounds nml Cardiovascular: positive Regular rate & rhythm Abdomen: positive No distention Back: positive Nml inspection Skin: positive Color nml and No rash Extremities: positive Non-tender Neurologic/Psychiatric: positive Other (Speech is very tangential. No gross motor deficits) Lab Results 02/22/25 05:15 02/22/25 05:15 Other Labs: Lab Results x24hrs 02/22/25 Range/Units 12:00 Urine Color LIGHT RED Urine Clarity Cloudy (CLEAR) Urine pH 7.0 (5.0-7.5) PH Ur Specific [place] 1.020 (1.002-1.030) Urine Protein 100 H (NEGATIVE) mg/dL Urine Glucose (UA) Negative (NEGATIVE) mg/dL Urine Ketones Negative (NEGATIVE) mg/dL Urine Occult Blood Large (NEGATIVE) Urine Nitrite Negative (NEGATIVE) Urine Bilirubin Negative (NEGATIVE) Urine Urobilinogen 4 H (NORMAL) E.U./dL Ur Leukocyte Esterase Large (NEGATIVE) Urine RBC TNTC H (0-5) /HPF Urine WBC >25 H (0-5) /HPF Urine WBC Clumps PRESENT Ur Squamous Epith Cells RARE Squamous (<= Few) Urine Bacteria Many H (None Seen) /HPF Ur Microscopic Review INDICATED Urine Culture Comments INDICATED Assessment/Plan Problem List (1) Self-care deficit: Impression: I believe this is an acute on chronic self-care deficit. This patient presents to the ED unwashed, in soiled and foul smelling clothing. She came in dehydrated and appears to have some mild degree of malnourishment. Descriptions of her home involve rodent feces and states of severe uncleanliness. The toilet has not been flushed in some time. when she is given personal care items, she understands what to do with them (ie toothbrush, toothpaste, cup of water and basin) but refuses to use them. 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 She has no mental health diagnosis, because she has gone undoctored. she is very suspicious of others. Those that know her in the community describe her as grouchy, accusatory and paranoid. psychiatric opinion is that she has thought processes that are impaired by paranoia and disorganized thinking. Per telepsych recommendation, Risperdal 0.2 5 at night has been ordered to assist with her paranoia. We will continue this. This has been ongoing for several days, she has been complaint with therapy. I think there is a chance she would benefit from ongoing psychiatric med management, which is why [facility] and transfer might benefit her greatly. 02/25: Telepsych reeval today, at their recommendation I am increasing Risperdal to 0.5 mg nightly. Remains medically clear for discharge, pursuing placement at this time. (2) UTI (urinary tract infection): Impression: UA 02/22 with E. coli bacturia. She received one-time dose fosfomycin (3) Altered mental status: Impression: Presented to ED after welfare check. She was found outside her home. She was dehydrated and malnourished on presentation, this has improved. She has a longstanding history of paranoia. She is obviously unable to care for herself, and [facility] detained her on these grounds. Due to weather conditions, we are not able to transport her to the next level of care. She will remain here until that placement is secured. Continuing Risperdal. Today is avoidable day 1 (4) Dehydration: Impression: Resolved. (5) Lactic acidosis: Impression: Resolved. Likely due to dehydration.
--- NOTE | 2025-02-26 11:12 | PROVIDER PROGRESS NOTE ---
Subjective Prog Note Date Prog Note Date: 02/26/25 Subjective Pt reports feeling: No change Current Medications Current Medications Current Medications: Current Medications Generic Name Dose Route Start Last Admin Trade Name Fredavina PRN Reason Stop Dose Admin Acetaminophen 650 mg 02/17/25 15:39 Acetaminophen 325 Mg Tablet PO Q4HR PRN Pain 1 to 4, or Fever Docusate Sodium 250 - 500 mg 02/18/25 09:00 02/26/25 08:47 Docusate Sodium 250 Mg Capsule PO 250 mg DAILY JOSE Administration Enoxaparin Sodium 40 mg 02/18/25 09:00 02/26/25 08:47 Enoxaparin 40 Mg/0.4 Ml Syringe SUBQ Not Given DAILY JOSE Lisinopril 20 mg 02/23/25 12:00 02/26/25 08:47 Lisinopril 20 Mg Tablet PO 20 mg DAILY JOSE Administration Multivitamins/Minerals 1 tab 02/20/25 12:00 02/26/25 08:47 Multivitamin W/Minerals Tablet PO 1 tab DAILYWM JOSE Administration Ondansetron HCl 4 mg 02/17/25 15:39 Ondansetron Odt 4 Mg Tablet TL Q6HR PRN Nausea / Vomiting Polyethylene Glycol 17 gm 02/18/25 09:00 02/26/25 08:47 Polyethylene Glycol 3350 17 Gm Packet PO 17 gm DAILY JOSE Administration Risperidone 0.5 mg 02/25/25 21:00 02/25/25 20:22 Risperidone 0.25 Mg Tablet PO 0.5 mg QPM JOSE Administration Senna 8.6 - 17.2 mg 02/24/25 17:00 02/26/25 08:47 Senna 8.6 Mg Tablet PO 8.6 mg DAILY JOSE Administration Zinc Oxide 113 gm 02/24/25 19:09 Cod Liver Oil/Zinc Oxide 113 Gm Tube TOP PRN PRN Skin Care Objective Vital Signs/Intake & Output Reviewed Vital Signs: Yes Vital Signs: Vital Signs x48h Temp Pulse Resp BP Pulse Ox 02/26/25 09:00 97.9 F 90 16 110/57 L 97 02/26/25 04:53 97.9 F 72 16 116/58 L 96 Intake & Output: Intake & Output 02/23/25 02/24/25 02/25/25 02/26/25 23:59 23:59 23:59 23:59 Intake Total 1500 / 1500 600 / 600 840 / 840 257 / 257 Output Total 440 / 440 550 / 550 Balance 1060 / 1060 50 / 50 840 / 840 257 / 257 Objective General Appearance: positive No acute distress and Alert Eyes Bilateral: positive PERRL and Conjunctivae nml ENT: positive ENT inspection nml Neck: positive Nml inspection Respiratory: positive No respiratory distress and Breath sounds nml Cardiovascular: positive Regular rate & rhythm Abdomen: positive No distention Back: positive Nml inspection Skin: positive Color nml and No rash Extremities: positive Non-tender Neurologic/Psychiatric: positive Other (Speech is very tangential. No gross motor deficits) Lab Results 02/22/25 05:15 02/22/25 05:15 Other Labs: Lab Results x24hrs 02/22/25 Range/Units 12:00 Urine Color LIGHT RED Urine Clarity Cloudy (CLEAR) Urine pH 7.0 (5.0-7.5) PH Ur Specific [place] 1.020 (1.002-1.030) Urine Protein 100 H (NEGATIVE) mg/dL Urine Glucose (UA) Negative (NEGATIVE) mg/dL Urine Ketones Negative (NEGATIVE) mg/dL Urine Occult Blood Large (NEGATIVE) Urine Nitrite Negative (NEGATIVE) Urine Bilirubin Negative (NEGATIVE) Urine Urobilinogen 4 H (NORMAL) E.U./dL Ur Leukocyte Esterase Large (NEGATIVE) Urine RBC TNTC H (0-5) /HPF Urine WBC >25 H (0-5) /HPF Urine WBC Clumps PRESENT Ur Squamous Epith Cells RARE Squamous (<= Few) Urine Bacteria Many H (None Seen) /HPF Ur Microscopic Review INDICATED Urine Culture Comments INDICATED Assessment/Plan Problem List (1) Self-care deficit: Impression: I believe this is an acute on chronic self-care deficit. This patient presents to the ED unwashed, in soiled and foul smelling clothing. She came in dehydrated and appears to have some mild degree of malnourishment. Descriptions of her home involve rodent feces and states of severe uncleanliness. The toilet has not been flushed in some time. when she is given personal care items, she understands what to do with them (ie toothbrush, toothpaste, cup of water and basin) but refuses to use them. 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 She has no mental health diagnosis, because she has gone undoctored. she is very suspicious of others. Those that know her in the community describe her as grouchy, accusatory and paranoid. psychiatric opinion is that she has thought processes that are impaired by paranoia and disorganized thinking. Per telepsych recommendation, Risperdal 0.2 5 at night has been ordered to assist with her paranoia. We will continue this. This has been ongoing for several days, she has been complaint with therapy. I think there is a chance she would benefit from ongoing psychiatric med management, which is why skilled nursing and transfer might benefit her greatly. 02/25: Telepsych reeval today, at their recommendation I am increasing Risperdal to 0.5 mg nightly. Remains medically clear for discharge, pursuing placement at this time. 02/26: No changes to plan. Remains medically clear (2) UTI (urinary tract infection): Impression: UA 02/22 with E. coli bacturia. She received one-time dose fosfomycin (3) Altered mental status: Impression: Presented to ED after welfare check. She was found outside her home. She was dehydrated and malnourished on presentation, this has improved. She has a longstanding history of paranoia. She is obviously unable to care for herself, and [facility] detained her on these grounds. Due to weather conditions, we are not able to transport her to the next level of care. She will remain here until that placement is secured. Continuing Risperdal. Today is avoidable day 1 (4) Dehydration: Impression: Resolved. (5) Lactic acidosis: Impression: Resolved. Likely due to dehydration.
--- NOTE | 2025-02-27 12:38 | PROVIDER PROGRESS NOTE ---
Subjective Prog Note Date Prog Note Date: 02/27/25 Subjective Pt reports feeling: No change Current Medications Current Medications Current Medications: Current Medications Generic Name Dose Route Start Last Admin Trade Name Freq PRN Reason Stop Dose Admin Acetaminophen 650 mg 02/17/25 15:39 Acetaminophen 325 Mg Tablet PO Q4HR PRN Pain 1 to 4, or Fever Docusate Sodium 250 - 500 mg 02/18/25 09:00 02/27/25 08:25 Docusate Sodium 250 Mg Capsule PO 250 mg DAILY JOSE Administration Enoxaparin Sodium 40 mg 02/18/25 09:00 02/27/25 08:26 Enoxaparin 40 Mg/0.4 Ml Syringe SUBQ Not Given DAILY JOSE Fosfomycin Tromethamine 3 gm 02/27/25 12:27 Fosfomycin Tromethamine 3 Gm Packet PO 02/27/25 12:28 ONCE ONE Lisinopril 20 mg 02/23/25 12:00 02/27/25 08:25 Lisinopril 20 Mg Tablet PO 20 mg DAILY JOSE Administration Multivitamins/Minerals 1 tab 02/20/25 12:00 02/27/25 08:26 Multivitamin W/Minerals Tablet PO 1 tab DAILYWM JOSE Administration Ondansetron HCl 4 mg 02/17/25 15:39 Ondansetron Odt 4 Mg Tablet TL Q6HR PRN Nausea / Vomiting Polyethylene Glycol 17 gm 02/18/25 09:00 02/27/25 08:26 Polyethylene Glycol 3350 17 Gm Packet PO Not Given DAILY JOSE Risperidone 0.5 mg 02/25/25 21:00 02/26/25 20:32 Risperidone 0.25 Mg Tablet PO 0.5 mg QPM JOSE Administration Senna 8.6 - 17.2 mg 02/24/25 17:00 02/27/25 08:26 Senna 8.6 Mg Tablet PO 8.6 mg DAILY JOSE Administration Zinc Oxide 113 gm 02/24/25 19:09 Cod Liver Oil/Zinc Oxide 113 Gm Tube TOP PRN PRN Skin Care Objective Vital Signs/Intake & Output Reviewed Vital Signs: Yes Vital Signs: Vital Signs x48h Temp Pulse Resp BP Pulse Ox 02/27/25 08:25 97.9 F 92 20 117/65 96 Intake & Output: Intake & Output 02/24/25 02/25/25 02/26/25 02/27/25 23:59 23:59 23:59 23:59 Intake Total 600 / 600 840 / 840 1037 / 1037 240 / 240 Output Total 550 / 550 Balance 50 / 50 840 / 840 1037 / 1037 240 / 240 Objective General Appearance: positive No acute distress and Alert Eyes Bilateral: positive PERRL and Conjunctivae nml ENT: positive ENT inspection nml Neck: positive Nml inspection Respiratory: positive No respiratory distress and Breath sounds nml Cardiovascular: positive Regular rate & rhythm Abdomen: positive No distention Back: positive Nml inspection Skin: positive Color nml and No rash Extremities: positive Non-tender Neurologic/Psychiatric: positive Other (Speech is very tangential. No gross motor deficits) Lab Results 02/22/25 05:15 02/22/25 05:15 Other Labs: Lab Results x24hrs 02/22/25 Range/Units 12:00 Urine Color LIGHT RED Urine Clarity Cloudy (CLEAR) Urine pH 7.0 (5.0-7.5) PH Ur Specific [place] 1.020 (1.002-1.030) Urine Protein 100 H (NEGATIVE) mg/dL Urine Glucose (UA) Negative (NEGATIVE) mg/dL Urine Ketones Negative (NEGATIVE) mg/dL Urine Occult Blood Large (NEGATIVE) Urine Nitrite Negative (NEGATIVE) Urine Bilirubin Negative (NEGATIVE) Urine Urobilinogen 4 H (NORMAL) E.U./dL Ur Leukocyte Esterase Large (NEGATIVE) Urine RBC TNTC H (0-5) /HPF Urine WBC >25 H (0-5) /HPF Urine WBC Clumps PRESENT Ur Squamous Epith Cells RARE Squamous (<= Few) Urine Bacteria Many H (None Seen) /HPF Ur Microscopic Review INDICATED Urine Culture Comments INDICATED Assessment/Plan Problem List (1) Self-care deficit: Impression: I believe this is an acute on chronic self-care deficit. This patient presents to the ED unwashed, in soiled and foul smelling clothing. She came in dehydrated and appears to have some mild degree of malnourishment. Descriptions of her home involve rodent feces and states of severe uncleanliness. The toilet has not been flushed in some time. when she is given personal care items, she understands what to do with them (ie toothbrush, toothpaste, cup of water and basin) but refuses to use them. 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 She has no mental health diagnosis, because she has gone undoctored. she is very suspicious of others. Those that know her in the community describe her as grouchy, accusatory and paranoid. psychiatric opinion is that she has thought processes that are impaired by paranoia and disorganized thinking. Per telepsych recommendation, Risperdal 0.2 5 at night has been ordered to assist with her paranoia. We will continue this. This has been ongoing for several days, she has been complaint with therapy. I think there is a chance she would benefit from ongoing psychiatric med management, which is why [facility] and transfer might benefit her greatly. 02/25: Telepsych reeval today, at their recommendation I am increasing Risperdal to 0.5 mg nightly. Remains medically clear for discharge, pursuing placement at this time. 02/27: Nursing reports patient is weaker, feeling worse. I am unsure if she actually took the prescribed dose of fosfomycin, so I am ordering another dose and will have nursing witness this dose. Remains medically clear (2) UTI (urinary tract infection): Impression: UA 02/22 with E. coli bacturia. Given fosfomycin (3) Altered mental status: Impression: Presented to ED after welfare check. She was found outside her home. She was dehydrated and malnourished on presentation, this has improved. She has a longstanding history of paranoia. She is obviously unable to care for herself, and [facility] detained her on these grounds. Due to weather conditions, we are not able to transport her to the next level of care. She will remain here until that placement is secured. Continuing Risperdal. T (4) Dehydration: Impression: Resolved. (5) Lactic acidosis: Impression: Resolved. Likely due to dehydration.
[2025-02-27] MEDS: FOSFOMYCIN TROMETHAMINE 3 GM PACKET PO ONE (12:56)
[2025-02-27] MEDS: cefTRIAXone 1 GM VIAL IVP SCH (14:42)
--- NOTE | 2025-02-28 12:48 | PROVIDER PROGRESS NOTE ---
Subjective Prog Note Date Prog Note Date: 02/28/25 Subjective Pt reports feeling: No change Current Medications Current Medications Current Medications: Current Medications Generic Name Dose Route Start Last Admin Trade Name Freq PRN Reason Stop Dose Admin Acetaminophen 650 mg 02/17/25 15:39 Acetaminophen 325 Mg Tablet PO Q4HR PRN Pain 1 to 4, or Fever Docusate Sodium 250 - 500 mg 02/18/25 09:00 02/28/25 08:49 Docusate Sodium 250 Mg Capsule PO 250 mg DAILY JOSE Administration Enoxaparin Sodium 40 mg 02/18/25 09:00 02/28/25 08:48 Enoxaparin 40 Mg/0.4 Ml Syringe SUBQ 40 mg DAILY JOSE Administration Lisinopril 20 mg 02/23/25 12:00 02/28/25 08:51 Lisinopril 20 Mg Tablet PO 20 mg DAILY JOSE Administration Multivitamins/Minerals 1 tab 02/20/25 12:00 02/28/25 08:49 Multivitamin W/Minerals Tablet PO 1 tab DAILYWM JOSE Administration Ondansetron HCl 4 mg 02/17/25 15:39 Ondansetron Odt 4 Mg Tablet TL Q6HR PRN Nausea / Vomiting Polyethylene Glycol 17 gm 02/18/25 09:00 02/28/25 08:48 Polyethylene Glycol 3350 17 Gm Packet PO 17 gm DAILY JOSE Administration Risperidone 0.5 mg 02/25/25 21:00 02/27/25 20:05 Risperidone 0.25 Mg Tablet PO 0.5 mg QPM JOSE Administration Senna 8.6 - 17.2 mg 02/24/25 17:00 02/28/25 08:49 Senna 8.6 Mg Tablet PO 8.6 mg DAILY JOSE Administration Zinc Oxide 113 gm 02/24/25 19:09 Cod Liver Oil/Zinc Oxide 113 Gm Tube TOP PRN PRN Skin Care Objective Vital Signs/Intake & Output Reviewed Vital Signs: Yes Vital Signs: Vital Signs x48h Temp Pulse Resp BP Pulse Ox 02/28/25 12:30 97.5 F L 93 16 108/56 L 94 02/28/25 07:40 97.3 F L 82 16 132/68 H 98 Intake & Output: Intake & Output 02/25/25 02/26/25 02/27/25 02/28/25 23:59 23:59 23:59 23:59 Intake Total 840 / 840 1037 / 1037 1500 / 1500 480 / 480 Balance 840 / 840 1037 / 1037 1500 / 1500 480 / 480 Objective General Appearance: positive No acute distress and Alert Eyes Bilateral: positive PERRL and Conjunctivae nml ENT: positive ENT inspection nml Neck: positive Nml inspection Respiratory: positive No respiratory distress and Breath sounds nml Cardiovascular: positive Regular rate & rhythm Abdomen: positive No distention Back: positive Nml inspection Skin: positive Color nml and No rash Extremities: positive Non-tender Neurologic/Psychiatric: positive Other (Speech is very tangential. No gross motor deficits) Lab Results 02/22/25 05:15 02/22/25 05:15 Other Labs: Lab Results x24hrs 02/22/25 Range/Units 12:00 Urine Color LIGHT RED Urine Clarity Cloudy (CLEAR) Urine pH 7.0 (5.0-7.5) PH Ur Specific [place] 1.020 (1.002-1.030) Urine Protein 100 H (NEGATIVE) mg/dL Urine Glucose (UA) Negative (NEGATIVE) mg/dL Urine Ketones Negative (NEGATIVE) mg/dL Urine Occult Blood Large (NEGATIVE) Urine Nitrite Negative (NEGATIVE) Urine Bilirubin Negative (NEGATIVE) Urine Urobilinogen 4 H (NORMAL) E.U./dL Ur Leukocyte Esterase Large (NEGATIVE) Urine RBC TNTC H (0-5) /HPF Urine WBC >25 H (0-5) /HPF Urine WBC Clumps PRESENT Ur Squamous Epith Cells RARE Squamous (<= Few) Urine Bacteria Many H (None Seen) /HPF Ur Microscopic Review INDICATED Urine Culture Comments INDICATED Assessment/Plan Problem List (1) Self-care deficit: (2) UTI (urinary tract infection): (3) Altered mental status: (4) Dehydration: (5) Lactic acidosis:
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
[2025-03-01 15:50] VITALS: BP 137/78; TEMP 205.5; O2SAT 96
== END 2025-03-01 15:48 | disposition short-term general hospital (02) ==
LOC: MS2 11:16 → ED 11:16
PROVIDERS: ADMIT Physician Assistant Medical; ATTEND Physician Assistant Medical
DX: R41.82 Altered mental status, unspecified; I10 Essential (primary) hypertension; N39.0 Urinary tract infection, site not specified; E46 Unspecified protein-calorie malnutrition; Z66 Do not resuscitate; B96.20 Unspecified Escherichia coli [E. coli] as the cause of diseases classified elsewhere; E86.0 Dehydration; Z68.20 Body mass index [BMI] 20.0-20.9, adult; E87.20 Acidosis, unspecified; Z74.1 Need for assistance with personal care; F22 Delusional disorders